=== PATIENT | female | born 1970 | race American Indian/Alaskan Native ===

== ENCOUNTER 2016-07-16 09:42 | Emergency (ER) | payer SELFPAY ==
[2016-07-16 09:55] VITALS: BP 129/84
[2016-07-16] MEDS ORDERED: MOTRIN PO ONE (10:28)
--- NOTE | 2016-07-16 11:23 | Emergency Department Report ---
ED General Adult HPI - General Chief complaint: Extremity Injury, Lower Stated complaint: DUAL LEG PAIN /SWELLING Time Seen by Provider: 07/16/16 10:22 Source: patient Mode of arrival: Ambulatory Limitations: No Limitations - History of Present Illness Initial comments: 25-year-old female presents to the ED complaining about bilateral lower leg pain for about a day or 2. Patient states it is an aching pain and denies any injury. States history of DVT in the past. Denies control use, smoking history, long trips recently. denies chest pain or dyspnea. Severity scale (0 -10): 7 - Related Data Previous Rx's Medication Instructions Recorded Last Taken Type Gabapentin [Neurontin] 300 mg PO BID #60 capsule 12/11/14 Unknown Rx Metoprolol Xl [Metoprolol 25 mg PO QDAY #30 tablet 12/11/14 Unknown Rx SUCCINATE ER TAB] HYDROcodone/APAP 5-325 [[place] 1 each PO Q6HR PRN #30 tablet 05/10/15 Unknown Rx 5/325] Cyclobenzaprine [Flexeril] 10 mg PO TID PRN #14 tablet 07/16/16 Unknown Rx Diclofenac Sodium 75 mg PO BID #14 tablet. 07/16/16 Unknown Rx Allergies Allergy/AdvReac Type Severity Reaction Status Date / Time No Known Allergies Allergy Verified 05/10/15 11:46 ED Review of Systems ROS: Stated complaint: DUAL LEG PAIN /SWELLING Other details as noted in HPI Constitutional: denies: chills, fever Eyes: denies: eye pain, eye discharge, vision change ENT: denies: ear pain, throat pain Respiratory: denies: cough, shortness of breath, wheezing Cardiovascular: denies: chest pain, palpitations Endocrine: no symptoms reported Gastrointestinal: denies: abdominal pain, nausea, diarrhea Genitourinary: denies: urgency, dysuria, discharge Musculoskeletal: myalgia. denies: back pain, joint swelling, arthralgia Skin: denies: rash, lesions Neurological: denies: headache, weakness, paresthesias Psychiatric: denies: anxiety, depression Hematological/Lymphatic: denies: easy bleeding, easy bruising ED Past Medical Hx - Past Medical History Previous Medical History?: Yes Hx Hypertension: Yes Hx Asthma: Yes Additional medical history: SLEEP APNEA - Surgical History Past Surgical History?: Yes Additional Surgical History: hysterectomy. TUBAL LIGATION - Social History Smoking Status: Never Smoker Substance Use Type: Prescribed - Medications Home Medications: Home Medications Medication Instructions Recorded Confirmed Last Taken Type Gabapentin [Neurontin] 300 mg PO BID #60 capsule 12/11/14 Unknown Rx Metoprolol Xl [Metoprolol 25 mg PO QDAY #30 tablet 12/11/14 Unknown Rx SUCCINATE ER TAB] HYDROcodone/APAP 5-325 [[place] 1 each PO Q6HR PRN #30 tablet 05/10/15 Unknown Rx 5/325] Cyclobenzaprine [Flexeril] 10 mg PO TID PRN #14 tablet 07/16/16 Unknown Rx Diclofenac Sodium 75 mg PO BID #14 tablet. 07/16/16 Unknown Rx ED Physical Exam - General Limitations: No Limitations General appearance: alert, in no apparent distress - Head Head exam: Present: atraumatic, normocephalic - Eye Eye exam: Present: normal appearance - ENT ENT exam: Present: mucous membranes moist - Neck Neck exam: Present: normal inspection - Respiratory Respiratory exam: Present: normal lung sounds bilaterally. Absent: respiratory distress, wheezes, rales, rhonchi - Cardiovascular Cardiovascular Exam: Present: regular rate, normal rhythm. Absent: systolic murmur, diastolic murmur, rubs, gallop - GI/Abdominal GI/Abdominal exam: Present: soft, normal bowel sounds - Extremities Exam Extremities exam: Present: normal inspection, calf tenderness (bilateral calf tenderness.) - Back Exam Back exam: Present: normal inspection - Neurological Exam Neurological exam: Present: alert, oriented X3 - Psychiatric Psychiatric exam: Present: normal affect, normal mood - Skin Skin exam: Present: warm, dry, intact, normal color. Absent: rash ED Course Vital Signs 07/16/16 09:51 Temperature 98.3 F Pulse Rate 86 Respiratory 20 Rate Blood Pressure 129/84 O2 Sat by Pulse 100 Oximetry ED Medical Decision Making - Radiology Data Radiology results: report reviewed No DVT seen on ultrasound. - Medical Decision Making DVT is negative. Patient resting comfortably at this time. No acute distress. Critical care attestation.: If time is entered above; I have spent that time in minutes in the direct care of this critically ill patient, excluding procedure time. ED Disposition Clinical Impression: Bilateral lower extremity pain Disposition: DISCHARGED TO HOME OR SELFCARE Is pt being admited?: No Does the pt Need Aspirin: No Condition: Good Prescriptions: Cyclobenzaprine [Flexeril] 10 mg PO TID PRN #14 tablet PRN Reason: Muscle Spasm Diclofenac Sodium 75 mg PO BID #14 tablet. Referrals: PRIMARY CARE, [Primary Care Provider] - 3-5 Days [facility] [Provider Group] - 3-5 Days Forms: Work/School Release Form(ED) Time of Disposition: 11:23
--- NOTE | 2016-07-17 08:24 | Vascular Lab Report ---
LOWER EXTREMITY VENOUS DUPLEX: REASON FOR EXAM: Leg pain/history of DVT. COMMENTS ON THE RIGHT: All veins visualized are freely compressible without evidence of internal echogenicity. Flow is spontaneous and phasic throughout. COMMENTS ON THE LEFT: All veins visualized are freely compressible without evidence of internal echogenicity. Flow is spontaneous and phasic throughout. IMPRESSION: No evidence of acute or chronic deep venous thrombosis in either lower extremity.
== END 2016-07-16 11:47 | disposition home or self-care (01) ==
LOC: ED 09:42
DX: M79.662 Pain in left lower leg (principal); M79.661 Pain in right lower leg; I10 Essential (primary) hypertension; J45.909 Unspecified asthma, uncomplicated; Z86.718 Personal history of other venous thrombosis and embolism; Z87.891 Personal history of nicotine dependence
CPT/HCPCS: 93970

== ENCOUNTER 2016-12-17 10:20 | Emergency (ER) | payer SELFPAY ==
--- NOTE | 2016-12-17 10:57 | Emergency Department Report ---
Entered by CHRISTI MOBLEY, acting as scribe for NOELLE RODARTE NP. Stated Complaint: CANT MOVE LEFT LEG Time Seen by Provider: 12/17/16 10:47 - HPI History of Present Illness: Patient is a 46 y.o. female with hx of DVT in 12/2015 who presents to ED for evaluation of three day hx of constant, moderate to severe LLE weakness with associated 6/10 LLE pain and mild speech slurring. She has difficulty lifting her LLE to ambulate or step on scale. Patient states that she was talking on the phone with her yesterday, and he could not understand her secondary to what he states is a mild change in her speech. Pt does not report headache or confusion. She denies hx of stroke or LLE problems. - ROS Review of Systems: Positive for LLE weakness, LLE pain, speech slurring Negative for headache or confusion - Exam Physical Exam: Constitutional: Well-nourished Neuro: A&Ox3. LLE weakness. MSE screening note: Focused history and physical exam performed. Due to findings the following was ordered: Orders: Labs, EKG, and CT head. ED Disposition for MSE Condition: Stable This documentation as recorded by the scribe,CHRISTI MOBLEY,accurately reflects the service I personally performed and the decisions made by ,NOELLE RODARTE , INTERVENTIONAL PHYSIATRIST.
[2016-12-17 11:15] LABS: Basophils % (Auto) 0.3 % (0.0-1.8); Eosinophils % (Auto) 1.4 % (0.0-4.3); Hematocrit 37.3 % (30.3-42.9); Hemoglobin 12.5 gm/dl (10.1-14.3); Mean Corpuscular HGB Conc 34 % (30-34); Mean Corpuscular Hemoglobin 31 pg (28-32); Mean Corpuscular Volume 92 fl (79-97); Platelet Count 308 K/mm3 (140-440); Red Blood Count 4.06 M/mm3 (3.65-5.03); Red Cell Distribution Width 13.5 % (13.2-15.2); White Blood Count 6.7 K/mm3 (4.5-11.0)
[2016-12-17 11:25] LABS: INR 0.94 (0.87-1.13); Partial Thromboplastin Time 24.3 Sec. (24.2-36.6)
[2016-12-17 11:36] LABS: Alanine Aminotransferase 11 units/L (7-56); Albumin 3.8 g/dL (3.9-5); Alkaline Phosphatase 69 units/L (35-129); Anion Gap 16 mmol/L; Blood Urea Nitrogen 14 mg/dL (7-17); Calcium 8.4 mg/dL (8.4-10.2); Carbon Dioxide 23 mmol/L (22-30); Chloride 102.2 mmol/L (98-107); Glucose 90 mg/dL (65-100); Potassium 4.4 mmol/L (3.6-5.0); Sodium 137 mmol/L (137-145); Total Protein 7.5 g/dL (6.3-8.2)
--- NOTE | 2016-12-17 11:37 | Cat Scan Report ---
CT HEAD WITHOUT CONTRAST INDICATION: Left lower extremity weakness. COMPARISON: None similar. FINDINGS: Noncontrast head CT demonstrates normal ventricles and sulci without acute or recent infarct, hemorrhage, mass effect or midline shift. No abnormal extra-axial fluid collections. Posterior fossa structures and basilar cisterns appear within normal limits. Symmetric eye globes. Clear paranasal sinuses and mastoid air cells. Intact calvarium. Normal overlying scalp soft tissues. Few radiopaque dental material incidentally noted. CONCLUSION: No acute intracranial CT abnormality, as described. If focal neurologic deficits or strong clinical suspicion for an acute infarction exist, additional assessment as with MRI may be considered, as appropriate. Thank you for the opportunity to participate in this patient's care.
[2016-12-17 15:18] LABS: Bacteria,Urine 1+ /HPF (Negative); Bilirubin,Urine NEG (Negative); Blood,Urine NEG (Negative); Ketones,Urine NEG (Negative); Leukocyte Esterase,Urine NEG (Negative); Nitrite,Urine NEG (Negative); Protein,Urine <15 mg/dL mg/dL (Negative); Urobilinogen,Urine < 2.0 mg/dL (<2.0)
[2016-12-17] MEDS ORDERED: DECADRON IV ONE (15:20)
[2016-12-17 15:22] LABS: RBC,Urine < 1.0 /HPF (0.0-6.0)
--- NOTE | 2016-12-17 15:22 | Emergency Department Report ---
ED General Adult HPI - General Chief complaint: Neuro Symptoms/Deficit Stated complaint: CANT MOVE LEFT LEG Time Seen by Provider: 12/17/16 10:47 Source: patient, family, RN notes reviewed Mode of arrival: Wheelchair Limitations: Physical Limitation - History of Present Illness Initial comments: This is a 46-year-old female. She is previously unknown to me. She does not have a local primary care doctor. She has a history of DVT, hypertension and obesity, not currently on systemic anticoagulation. The patient recently moved here from [place]. The patient presents to the ER with painless weakness in the left lower extremity. It has been going on for the past day and a half to 2 days. It is constant. Does not have exacerbating or relieving factors. Patient reports that she did have some paralumbar and lumbar back pain a few days ago, this has since resolved. There is no headache, neck pain, chest pain, abdominal pain or shortness of breath. There is no saddle anesthesia. There is no bladder or bowel retention or incontinence. -: Gradual Location: left, lower extremity Severity scale (0 -10): 10 Consistency: constant Improves with: none Worsens with: none Associated Symptoms: denies: confusion, chest pain, cough, diaphoresis, fever/ chills, headaches, loss of appetite, malaise, nausea/vomiting, shortness of breath, syncope, weakness - Related Data Previous Rx's Medication Instructions Recorded Last Taken Type Gabapentin [Neurontin] 300 mg PO BID #60 capsule 12/11/14 Unknown Rx Metoprolol Xl [Metoprolol 25 mg PO QDAY #30 tablet 12/11/14 Unknown Rx SUCCINATE ER TAB] HYDROcodone/APAP 5-325 [[place] 1 each PO Q6HR PRN #30 tablet 05/10/15 Unknown Rx 5/325] Cyclobenzaprine [Flexeril] 10 mg PO TID PRN #14 tablet 07/16/16 Unknown Rx Diclofenac Sodium 75 mg PO BID #14 tablet.dr 07/16/16 Unknown Rx Aspirin 81 mg PO DAILY #30 tab.chew 12/17/16 Unknown Rx Prednisone [predniSONE 10 mg 10 mg PO .TAPER #1 tab.ds.pk 12/17/16 Unknown Rx (6-Day Pack, 21 Tabs)] Allergies Allergy/AdvReac Type Severity Reaction Status Date / Time No Known Allergies Allergy Verified 05/10/15 11:46 ED Review of Systems ROS: Stated complaint: CANT MOVE LEFT LEG Other details as noted in HPI Constitutional: denies: fever, malaise Eyes: denies: vision change ENT: denies: epistaxis Respiratory: denies: cough Cardiovascular: denies: chest pain Gastrointestinal: denies: abdominal pain, nausea, vomiting Musculoskeletal: back pain Neurological: weakness, numbness, paresthesias ED Past Medical Hx - Past Medical History Previous Medical History?: Yes Hx Hypertension: Yes Hx Asthma: Yes Additional medical history: SLEEP APNEA - Surgical History Past Surgical History?: Yes Additional Surgical History: hysterectomy. TUBAL LIGATION - Social History Smoking Status: Never Smoker Substance Use Type: Prescribed - Medications Home Medications: Home Medications Medication Instructions Recorded Confirmed Last Taken Type Gabapentin [Neurontin] 300 mg PO BID #60 capsule 12/11/14 Unknown Rx Metoprolol Xl [Metoprolol 25 mg PO QDAY #30 tablet 12/11/14 Unknown Rx SUCCINATE ER TAB] HYDROcodone/APAP 5-325 [[place] 1 each PO Q6HR PRN #30 tablet 05/10/15 Unknown Rx 5/325] Cyclobenzaprine [Flexeril] 10 mg PO TID PRN #14 tablet 07/16/16 Unknown Rx Diclofenac Sodium 75 mg PO BID #14 tablet.dr 07/16/16 Unknown Rx Aspirin 81 mg PO DAILY #30 tab.chew 12/17/16 Unknown Rx Prednisone [predniSONE 10 mg 10 mg PO .TAPER #1 tab.ds.pk 12/17/16 Unknown Rx (6-Day Pack, 21 Tabs)] ED Physical Exam - General Limitations: Physical Limitation General appearance: alert, in no apparent distress - Head Head exam: Present: atraumatic, normocephalic - Eye Eye exam: Present: normal appearance, EOMI. Absent: nystagmus - ENT ENT exam: Present: normal exam, normal orophraynx, mucous membranes moist, normal external ear exam - Neck Neck exam: Present: normal inspection, full ROM. Absent: tenderness, meningismus - Respiratory Respiratory exam: Present: normal lung sounds bilaterally. Absent: respiratory distress, wheezes, rales, rhonchi, stridor, chest wall tenderness - Cardiovascular Cardiovascular Exam: Present: regular rate, normal rhythm, normal heart sounds. Absent: bradycardia, tachycardia, irregular rhythm, systolic murmur, diastolic murmur, rubs, gallop - GI/Abdominal GI/Abdominal exam: Present: soft, normal bowel sounds. Absent: distended, tenderness, guarding, rebound, rigid - Extremities Exam Extremities exam: Present: normal inspection, normal capillary refill, other ( there is 5 out of 5 strength in the bilateral lower extremity is. There is 5 out of 5 strength in the right lower extremity.). Absent: full ROM (there is decreased range of motion in the left lower extremity. patient is able to wiggle toes, and muscle contraction is noted in the quadriceps, however patient unable to lift left lower extremity up against gravity, plantar reflexes are equivocal, quadriceps reflexes are equivocal, decreased sensation to light touch and pinprick in the left lower extremity.), calf tenderness - Back Exam Back exam: Present: normal inspection, paraspinal tenderness, vertebral tenderness - Neurological Exam Neurological exam: Present: alert, oriented X3, motor sensory deficit ( decreased sensation to light touch and pinprick, 1 out of 5 strength in the left lower extremity), other (there is no facial droop. The tongue is midline. Extraocular movements are intact bilaterally. Facial sensation intact to light touch in the V1, V2, V3 distribution bilaterally) - Psychiatric Psychiatric exam: Present: normal affect, normal mood - Skin Skin exam: Present: warm, dry, intact, normal color. Absent: rash ED Course Vital Signs 12/17/16 12/17/16 12/17/16 10:47 12:57 13:00 Temperature 98.4 F Pulse Rate 86 Respiratory 16 Rate Blood Pressure 110/70 115/62 Blood Pressure [Left] O2 Sat by Pulse 99 100 100 Oximetry 12/17/16 12/17/16 12/17/16 13:10 13:20 13:30 Temperature Pulse Rate Respiratory Rate Blood Pressure 115/62 115/62 102/64 Blood Pressure [Left] O2 Sat by Pulse 100 100 95 Oximetry 12/17/16 12/17/16 12/17/16 13:40 13:42 13:50 Temperature 98.6 F Pulse Rate 71 Respiratory 17 Rate Blood Pressure 102/64 102/64 Blood Pressure 109/58 [Left] O2 Sat by Pulse 97 100 100 Oximetry 12/17/16 12/17/16 12/17/16 14:00 14:10 14:20 Temperature Pulse Rate Respiratory Rate Blood Pressure 101/61 101/61 101/61 Blood Pressure [Left] O2 Sat by Pulse 100 100 100 Oximetry 12/17/16 12/17/16 12/17/16 14:30 14:50 15:00 Temperature Pulse Rate Respiratory Rate Blood Pressure 102/63 102/63 102/65 Blood Pressure [Left] O2 Sat by Pulse 100 100 100 Oximetry 12/17/16 12/17/16 12/17/16 15:10 15:20 15:30 Temperature Pulse Rate Respiratory Rate Blood Pressure 102/65 102/65 111/69 Blood Pressure [Left] O2 Sat by Pulse 100 100 100 Oximetry 12/17/16 12/17/16 12/17/16 15:40 15:50 16:00 Temperature Pulse Rate Respiratory Rate Blood Pressure 111/69 111/69 104/66 Blood Pressure [Left] O2 Sat by Pulse 100 100 100 Oximetry 12/17/16 12/17/16 12/17/16 16:10 16:20 16:30 Temperature Pulse Rate Respiratory Rate Blood Pressure 104/66 104/66 109/70 Blood Pressure [Left] O2 Sat by Pulse 100 100 98 Oximetry 12/17/16 12/17/16 12/17/16 18:04 18:10 18:20 Temperature Pulse Rate Respiratory Rate Blood Pressure 109/70 109/70 109/70 Blood Pressure [Left] O2 Sat by Pulse 96 97 98 Oximetry 12/17/16 12/17/16 12/17/16 18:30 18:40 18:50 Temperature Pulse Rate Respiratory Rate Blood Pressure 107/63 107/63 107/63 Blood Pressure [Left] O2 Sat by Pulse 96 100 100 Oximetry - Reevaluation(s) Reevaluation #1: 12/17/16 15:48 differential diagnosis: Subacute stroke, cord compression Assessment and plan: 46-year-old female with approximately 2 days of left lower extremity weakness and numbness. There is no bladder or bowel retention or incontinence. She endorses some back pain. Not a TPA candidate as symptoms present for greater than 4.5 hours. Emergent MR of the thoracic and lumbar spine ordered. Decadron ordered. Laboratory studies are reviewed and appreciated. Reevaluation #2: 12/17/16 17:15 case is discussed with neurosurgery power distribution engineer for [place], Dr. Bhupendra Aguilar, who agrees with this plan of care, and indicates patient may be transferred if cord compression identified on MRI 12/17/16 19:40 Reevaluation #3: 08/01/17 18:51 MRI of the thoracic and lumbar spine negative for cord compression. NO INDICATION TO transfer for neurosurgical consultation Has appropriate strength in the bilateral upper extremities, therefore cervical lesion is very unlikely. Patient is presented to the Hospital physician, Dr. Cisneros for presumed subacute stroke. 12/17/16 19:40 ED Medical Decision Making - Lab Data Result diagrams: 12/17/16 11:04 12/17/16 11:04 Vital Signs 12/17/16 12/17/16 10:47 13:42 Temperature 98.4 F 98.6 F Pulse Rate 86 71 Respiratory 16 17 Rate Blood Pressure 110/70 Blood Pressure 109/58 [Left] O2 Sat by Pulse 99 100 Oximetry Lab Results 12/17/16 12/17/16 12/17/16 Range/Units 11:04 11:04 11:04 WBC 6.7 (4.5-11.0) K/mm3 RBC 4.06 (3.65-5.03) M/mm3 Hgb 12.5 (10.1-14.3) gm/dl Hct 37.3 (30.3-42.9) % MCV 92 (79-97) fl MCH 31 (28-32) pg MCHC 34 (30-34) % RDW 13.5 (13.2-15.2) % Plt Count 308 (140-440) K/mm3 Lymph % (Auto) 44.5 H (13.4-35.0) % [place] % (Auto) 9.3 H (0.0-7.3) % Eos % (Auto) 1.4 (0.0-4.3) % Baso % (Auto) 0.3 (0.0-1.8) % Lymph # 3.0 (1.2-5.4) K/mm3 [place] # 0.6 (0.0-0.8) K/mm3 Eos # 0.1 (0.0-0.4) K/mm3 Baso # 0.0 (0.0-0.1) K/mm3 Seg Neutrophils % 44.5 (40.0-70.0) % Seg Neutrophils # 3.0 (1.8-7.7) K/mm3 PT 12.5 (12.2-14.9) Sec. INR 0.94 (0.87-1.13) APTT 24.3 (24.2-36.6) Sec. Sodium 137 (137-145) mmol/L Potassium 4.4 (3.6-5.0) mmol/L Chloride 102.2 (98-107) mmol/L Carbon Dioxide 23 (22-30) mmol/L Anion Gap 16 mmol/L BUN 14 (7-17) mg/dL Creatinine 0.7 (0.7-1.2) mg/dL Estimated GFR > 60 ml/min BUN/Creatinine Ratio 20.00 % Glucose 90 (65-100) mg/dL Calcium 8.4 (8.4-10.2) mg/dL Total Bilirubin 0.30 (0.1-1.2) mg/dL AST 12 (5-40) units/L ALT 11 (7-56) units/L Alkaline Phosphatase 69 (35-129) units/L Total Protein 7.5 (6.3-8.2) g/dL Albumin 3.8 L (3.9-5) g/dL Albumin/Globulin Ratio 1.0 % Urine Color (Yellow) Urine Turbidity (Clear) Urine pH (5.0-7.0) Ur Specific [place] (1.003-1.030) Urine Protein (Negative) mg/dL Urine Glucose (UA) (Negative) mg/dL Urine Ketones (Negative) mg/dL Urine Blood (Negative) Urine Nitrite (Negative) Urine Bilirubin (Negative) Urine Urobilinogen (<2.0) mg/dL Ur Leukocyte Esterase (Negative) Urine WBC (Auto) (0.0-6.0) /HPF Urine RBC (Auto) (0.0-6.0) /HPF U Epithel Cells (Auto) (0-13.0) /HPF Urine Bacteria (Auto) (Negative) /HPF 12/17/16 Range/Units 14:08 WBC (4.5-11.0) K/mm3 RBC (3.65-5.03) M/mm3 Hgb (10.1-14.3) gm/dl Hct (30.3-42.9) % MCV (79-97) fl MCH (28-32) pg MCHC (30-34) % RDW (13.2-15.2) % Plt Count (140-440) K/mm3 Lymph % (Auto) (13.4-35.0) % [place] % (Auto) (0.0-7.3) % Eos % (Auto) (0.0-4.3) % Baso % (Auto) (0.0-1.8) % Lymph # (1.2-5.4) K/mm3 [place] # (0.0-0.8) K/mm3 Eos # (0.0-0.4) K/mm3 Baso # (0.0-0.1) K/mm3 Seg Neutrophils % (40.0-70.0) % Seg Neutrophils # (1.8-7.7) K/mm3 PT (12.2-14.9) Sec. INR (0.87-1.13) APTT (24.2-36.6) Sec. Sodium (137-145) mmol/L Potassium (3.6-5.0) mmol/L Chloride (98-107) mmol/L Carbon Dioxide (22-30) mmol/L Anion Gap mmol/L BUN (7-17) mg/dL Creatinine (0.7-1.2) mg/dL Estimated GFR ml/min BUN/Creatinine Ratio % Glucose (65-100) mg/dL Calcium (8.4-10.2) mg/dL Total Bilirubin (0.1-1.2) mg/dL AST (5-40) units/L ALT (7-56) units/L Alkaline Phosphatase (35-129) units/L Total Protein (6.3-8.2) g/dL Albumin (3.9-5) g/dL Albumin/Globulin Ratio % Urine Color Straw (Yellow) Urine Turbidity Clear (Clear) Urine pH 5.0 (5.0-7.0) Ur Specific [place] 1.013 (1.003-1.030) Urine Protein <15 mg/dl (Negative) mg/dL Urine Glucose (UA) Neg (Negative) mg/dL Urine Ketones Neg (Negative) mg/dL Urine Blood Neg (Negative) Urine Nitrite Neg (Negative) Urine Bilirubin Neg (Negative) Urine Urobilinogen < 2.0 (<2.0) mg/dL Ur Leukocyte Esterase Neg (Negative) Urine WBC (Auto) 1.0 (0.0-6.0) /HPF Urine RBC (Auto) < 1.0 (0.0-6.0) /HPF U Epithel Cells (Auto) 3.0 (0-13.0) /HPF Urine Bacteria (Auto) 1+ (Negative) /HPF - EKG Data -: EKG Interpreted by Me EKG shows normal: sinus rhythm, axis, intervals, QRS complexes, ST-T waves - EKG Data When compared to previous EKG there are: previous EKG unavailable 12/17/16 15:49. Normal sinus, 88 bpm, normal axis, normal intervals, right bundle branch block, abnormal EKG, not morphological consistent with stemi - Radiology Data Radiology results: report reviewed, image reviewed Noncontrast CT scan of the brain is negative for acute disease Critical care attestation.: If time is entered above; I have spent that time in minutes in the direct care of this critically ill patient, excluding procedure time. ED Disposition Clinical Impression: Left leg weakness Disposition: - OP ADMIT IP TO THIS HOSP Is pt being admited?: Yes Does the pt Need Aspirin: Yes Condition: Good Prescriptions: Aspirin 81 mg PO DAILY #30 tab.chew Prednisone [predniSONE 10 mg (6-Day Pack, 21 Tabs)] 10 mg PO .TAPER #1 tab.ds.pk Referrals: PRIMARY CARE, [Primary Care Provider] - 3-5 Days
--- NOTE | 2016-12-17 18:24 | Magnetic Resonance Report ---
FINAL REPORT PROCEDURE: MR THORACIC SPINE WO CON TECHNIQUE: Magnetic resonance imaging of the thoracic spine was performed using standard pulse sequences without contrast material. CPT 62705 HISTORY: cord compression, nonspecified neurologic symptoms COMPARISON: No prior studies are available for comparison. FINDINGS: No thoracic compression fracture is seen. Mild Schmorl's node formation is seen in a few endplates in the mid thoracic spine. There is no subluxation. No abnormal T2 signal is seen in the thoracic cord. There likely very minimal central disc bulges at T4-5, T5-6, T6-7, and T7-8 but these cause no significant stenosis. No bony central canal or neural foraminal stenosis is seen. IMPRESSION: Few small disc bulges are seen centrally in the mid thoracic spine. No evidence of cord contact or cord compression is seen.
--- NOTE | 2016-12-17 18:26 | Magnetic Resonance Report ---
FINAL REPORT PROCEDURE: MR LUMBAR SPINE WO CON TECHNIQUE: Magnetic resonance imaging of the lumbar spine was performed using standard pulse sequences without contrast material. HISTORY: Nonspecified neurologic symptoms, cord compression COMPARISON: No prior studies are available for comparison. FINDINGS: The conus terminates at the L1 level. No lumbar compression fracture or abnormal bony signal is seen. No spondylolisthesis is seen. Mild facet hypertrophy is seen at L5-S1 causing no stenosis. No disc bulge or herniation is seen. IMPRESSION: No stenosis is seen.
--- NOTE | 2016-12-17 18:48 | History and Physical Report ---
History of Present Illness History of present illness: 46 YO Female with This is a 46-year-old female. She is previously unknown to me. She does not have a local primary care doctor. She has a history of DVT, hypertension and obesity, not currently on systemic anticoagulation. The patient recently moved here from [place]. The patient presents to the ER with painless weakness in the left lower extremity. It has been going on for the past day and a half to 2 days. It is constant. Does not have exacerbating or relieving factors. Patient reports that she did have some paralumbar and lumbar back pain a few days ago, this has since resolved. There is no headache, neck pain, chest pain, abdominal pain or shortness of breath. There is no saddle anesthesia. There is no bladder or bowel retention or incontinence. - Hx Hypertension: Yes Hx Asthma: Yes Additional medical history: SLEEP APNEA - Surgical History Past Surgical History?: Yes Additional Surgical History: hysterectomy. TUBAL LIGATION - Social History Smoking Status: Never Smoker Substance Use Type: Prescribed Medications and Allergies Allergies Allergy/AdvReac Type Severity Reaction Status Date / Time No Known Allergies Allergy Verified 05/10/15 11:46 Home Medications Medication Instructions Recorded Confirmed Last Taken Type Gabapentin [Neurontin] 300 mg PO BID #60 capsule 12/11/14 Unknown Rx Metoprolol Xl [Metoprolol 25 mg PO QDAY #30 tablet 12/11/14 Unknown Rx SUCCINATE ER TAB] HYDROcodone/APAP 5-325 [[place] 1 each PO Q6HR PRN #30 tablet 05/10/15 Unknown Rx 5/325] Cyclobenzaprine [Flexeril] 10 mg PO TID PRN #14 tablet 07/16/16 Unknown Rx Diclofenac Sodium 75 mg PO BID #14 tablet. 07/16/16 Unknown Rx Exam - Constitutional Vitals: Temp Pulse Resp BP Pulse Ox 98.6 F 71 17 109/58 100 12/17/16 13:42 12/17/16 13:42 12/17/16 13:42 12/17/16 13:42 12/17/16 13:42 Results - Labs CBC & Chem 7: 12/17/16 11:04 12/17/16 11:04 Labs: Abnormal lab results 12/17/16 12/17/16 Range/Units 11:04 11:04 Lymph % (Auto) 44.5 H (13.4-35.0) % [place] % (Auto) 9.3 H (0.0-7.3) % Albumin 3.8 L (3.9-5) g/dL
[2016-12-17] MEDS ORDERED: BABY ASPIRIN PO ONE (18:52)
--- NOTE | 2016-12-17 18:59 | Admit Criteria Form ---
Admission Criteria Documentation: NEUROLOGY GRG Clinical Indications for Admission to Inpatient Care (Place ' X' for any and all applicable criteria): Hospital admission is needed for appropriate care of the patient because of 1 or more of the following: [ ]I. Encephalitis [ ]II. Severe HOME CARE PHYSICAL THERAPIST infections indicated by 1 or more of the following(1)(2)(3) : [ ]a) Intracranial abscess [ ]b) Spinal abscess or myelitis [ ]c) Tuberculous or other nonbacterial, nonviral HOME CARE PHYSICAL THERAPIST infection(8) [ ]III. Vasculitis and 1 or more of the following(14)(15): []a) Altered mental status that is severe or persistent or other acute neurologic change []b) Psychosis []c) Seizure [ ]IV. Status epilepticus or repetitive seizures not controlled with emergent treatment [A] (7)(8) [ ]V. Altered mental status that is severe or persistent [ ]. Transient alteration in consciousness with high-risk etiology; examples include (12)(13): [ ]a) Cardiovascular source [ ]b) Cataplexy [ ]VII. Cerebral aneurysm requiring ANY ONE of the following(14): [ ]a) IV antihypertensives or vasoactive agents [ ]b) Sedation and analgesia for suspected leak [ ]c) Need for external ventricular drainage and cerebral perfusion pressure monitoring [ ]d) Emergent evaluation to determine need for surgical clipping or endovascular coiling by interventional radiology. If surgery is required ( Also use Craniotomy, Supratentorial, for Surgery of Bleeding Intracranial Aneurysm (for bleeding aneurysm) or Craniotomy, Supratentorial (for nonbleeding aneurysm) as appropriate. [X ]VIII. New-onset severe neurologic symptom requiring inpatient care indicated by ANY ONE of the following: [ ]a) Aphasia(15) [ X]b) Weakness (grade 3 or less) [ ]c) Paralysis (eg, hemiplegia) [ ]d) Spasticity(16) [ ]e) Dystonia [ ]e) Ataxia(17) [ ]f) Amnesia(18) [ ]g) Involuntary movements(19) [ ]h) Vertigo [ ] Visual loss [ ]i) Other severe neurologic finding (eg, papilledema, mass effect on imaging, myoclonus not treatable at alternative level of care (eg, observation care) [ ]IX. Guillain-[place] syndrome(20) [ ]X. Myasthenia gravis crisis or inpatient monitoring need as indicated by 1 or more of the following(21): [ ]a) Intensive treatment (eg, course of plasmapheresis) with inadequate outpatient situation to monitor patients status [ ]b) Inadequate airway protection [ ]c) Respiratory insufficiency requiring intubation or inpatient. monitoring [ ]d) Progressive dysphagia with failure to thrive [ ]XI. Multiple sclerosis or other acute demyelinating disease requiring inpatient care as indicated by 1 or more of the following (22)(23): [ ]a) Acute severe deterioration requiring inpatient treatment (eg, IV steroids, plasmapheresis, close observation) [ ]b) Acute complication requiring inpatient care (eg, sepsis, severe decubitus, aspiration) [ ]XII.Parkinson disease requiring inpatient care (Also use Optimal Recovery Care Criteria or General Recovery Criteria as appropriate) indicated by 1 or more of the following(25): [ ]a) Infection (eg, aspiration pneumonia) not treatable at alternative level of care [ ]b Dehydration that is severe or persistent [ ]c) Life-threatening agitation or psychotic behavior not treatable on emergency, observation care, or alternative level (eg, residential) basis [ ]d) Severe medication withdrawal effects (eg, freezing, neuroleptic malignant syndrome) not responsive to emergency and observation care treatment ( as appropriate) [ ]e) Other severe manifestation not treatable at alternative level of care [ ]XII. Amyotrophic lateral sclerosis with inpatient care needs as indicated by ANY ONE of the following(26): [ ]a) Acute complications (eg, aspiration pneumonia, sepsis ) requiring inpatient care ( see other optimal Recovery Guideline as appropriate) [ ]b) Dehydration that is severe persistent AND artificial support desired [ ]c) Inadequate airway protection AND artificial support desired [ ]d) Severe ventilatory insufficiency AND artificial support desired [ ]XIII. Myasthenia gravis crisis or inpatient monitoring need as indicated by 1 or more of the following(21): [] a) Inadequate airway protection []b) Respiratory insufficiency requiring intubation or inpatient monitoring []c) Progressive dysphagia with failure to thrive []d) Intensive treatment (e.g., course of plasmapheresis) with inadequate outpatient situation to monitor patients status [ ]XIV. Multiple sclerosis or other acute demyelinating disease requiring inpatient care indicated by 1 or more of the following[C](36)(43)(44)(45)(46): []a) Acute severe deterioration requiring inpatient treatment (eg, IV steroids, plasmapheresis, close observation) []b) Acute complication requiring inpatient care (eg, sepsis, severe decubitus, aspiration) [ ]XV. Intracranial hypertension (e.g., pseudotumor cerebri) requiring inpatient care (e.g., acute visual loss, inadequate oral intake) (47)(48)(49) [ ]XVI. Parkinson disease requiring inpatient care (Also use Optimal Recovery Care Criteria or General Recovery Criteria as appropriate) indicated by 1 or more of the following(25): [] a) Infection (e.g., aspiration pneumonia) not treatable at alternative level of care []b) Volume depletion not responsive to emergency and observation care treatment (as appropriate) []c) Life-threatening agitation or psychotic behavior not treatable on emergency, observation care, or alternative level (e.g., residential) basis []d) Severe medication withdrawal effects (e.g., freezing, neuroleptic malignant syndrome) not responsive to emergency and observation care treatment (as appropriate) []e) Other severe manifestation not treatable at alternative level of care [ ]XVII. Amyotrophic lateral sclerosis with inpatient care needs as indicated by1 or more of the following(42): []a) Acute complications (eg, aspiration pneumonia, sepsis) requiring inpatient care (see other Optimal Recovery Guideline or General Recovery Guideline as appropriate) []b) Dehydration that is severe or persistent AND artificial support desired []c) Inadequate airway protection AND artificial support desired []d) Severe ventilatory insufficiency AND artificial support desired [ ]XVIII. Severe myopathy, neuropathy, or other neuromuscular disease indicated by 1 or more of the following(42)(52)(53)(54): []a ) New-onset severe diffuse weakness (eg, strength 3/5 or less) []b) Severe dysphagia []c) Dyspnea at rest or with minimal exertion (new) []d) Inadequate airway protection []e) Inadequate ventilation indicated by 1 or more of the following : i) Partial pressure of carbon dioxide greater than 44 mm Hg ( 5.9 kPa) (new) ii) Reduced peak expiratory flow rate (new) iii) Vital capacity less than 50% of predicted (less than 15 mL/kg) iv) Peak inspiratory force less negative than -30 cm H2O (- 2942 Pa) [ ]XVII.Complications of congenital or degenerative disease (eg, infection, seizures, dehydration, injury) not responsive to emergency and observation care treatment (as appropriate ) [C](16)(29)(30) [ ]XVIII.Suspected or confirmed nerve or muscle toxic injury, including ANY ONE of the following: [ ]a) Rhabdomyolysis(31) i) Acute renal failure ii) Dehydration that is severe or persistent iii) Altered mental status that is severe or persistent iv) Electrolyte abnormality that remains after emergency or observation level care ( as appropriate) [ ]b) Botulism(32) [ ]c) Other severe toxin-induced sign or symptom [ ]XIX. Neurologic trauma requiring inpatient treatment (medical) indicated by ANY ONE of the following(33)(34): [ ]a) Vital signs or neurologic signs more frequently than every 4 hours [ ]b) Hyperosmolar therapy [ ]c) Respiratory monitoring [ ]d) Intracranial pressure monitoring and treatment [ ]e) Stabilization and immobilization device placement (eg, braces, body jacket) [ ]f) Intubation & mechanical ventilation for airway protection or therapeutic hyperventilation [ ]g) Other treatment or monitoring needed that requires inpatient level of care [ ]XX.Complications of neurologic devices (eg, ventricular shunt, neurostimulator) requiring 1 or more of the following(35)(36): [ ]a) IV antibiotics with monitoring while awaiting culture results [ ]b) Monitoring for hydrocephalus [ ]XXI. Neurology condition symptom, or finding for which emergency and observation care have failed or are not considered appropriate. See General Criteria: Observation Care ISC, General Admission Criteria GRG, or Pediatric General Admission Criteria GRG guideline as appropriate. The original [facility] [employer] content created by [facility] has been revised. The portions of the content which have been revised are identified through the use of italic text or in bold, and [facility] has neither reviewed nor approved the modified material. All other unmodified content is copyright [facility] Please see references footnoted in the original [facility] edition 2016 Admission Criteria Met: Yes
[2016-12-17 20:13] VITALS: BP 94/64
== END 2016-12-17 20:13 | disposition admitted as inpatient to this hospital (09) ==
LOC: ED 10:20
DX: M62.81 Muscle weakness (generalized) (principal); I10 Essential (primary) hypertension; J45.909 Unspecified asthma, uncomplicated; Z79.01 Long term (current) use of anticoagulants; Z79.82 Long term (current) use of aspirin
CPT/HCPCS: 36415; 70450; 72146; 72148; 80053; 81001; 85025; 85610; 85730; 93005; 93010

== ENCOUNTER 2017-12-11 16:34 | Emergency (ER) | payer SELFPAY ==
[2017-12-11 17:11] VITALS: BP 134/84
[2017-12-11 18:02] LABS: Basophils % (Auto) 0.2 % (0.0-1.8); Eosinophils # (Auto) 0.1 K/mm3 (0.0-0.4); Eosinophils % (Auto) 2.1 % (0.0-4.3); Hemoglobin 13.4 gm/dl (10.1-14.3); Lymphocytes # (Auto) 2.7 K/mm3 (1.2-5.4); Lymphocytes % (Auto) 50.1 % (13.4-35.0); Mean Corpuscular HGB Conc 34 % (30-34); Mean Corpuscular Hemoglobin 31 pg (28-32); Mean Corpuscular Volume 93 fl (79-97); Monocytes # (Auto) 0.4 K/mm3 (0.0-0.8); Monocytes % (Auto) 7.6 % (0.0-7.3); Platelet Count 345 K/mm3 (140-440); Red Cell Distribution Width 13.3 % (13.2-15.2)
[2017-12-11 18:19] LABS: BUN/Creatinine Ratio 15; Blood Urea Nitrogen 12 mg/dL (7-17); Calcium 9.3 mg/dL (8.4-10.2); Hemolysis Index 3
[2017-12-11] MEDS ORDERED: TORADOL IM ONE (20:37)
--- NOTE | 2017-12-11 20:38 | Emergency Department Report ---
ED General Adult HPI - General Chief complaint: Medical Clearance Stated complaint: PROBLEM W/ MUSCLES Time Seen by Provider: 12/11/17 20:25 Source: patient, RN notes reviewed, old records reviewed Mode of arrival: Ambulatory Limitations: No Limitations - History of Present Illness Initial comments: This is a 47-year-old female whom I have evaluated in the past. She has a past medical history DVT, hypertension, obesity, presumed radiculopathy. She presents to the ER with nontraumatic burning left lower extremity pain which starts the left paralumbar region and radiates down the posterior and lateral aspect of her left leg. Her pain is burning and sharp. It increases with range of motion and walking and decreases with rest. There is no headache, neck pain, chest pain, abdominal pain, shortness of breath. There is no bladder or bowel retention/incontinence. She denies motor weakness to the leg but indicates that she has intense pain which occasionally limits her range of motion. Patient presented for a similar complaint in December 2016, had an MRI of the thoracic spine which showed some incidental disc bulges but no obvious cord compression, and an MRI of the lumbar spine which was also equally unremarkable. -: Gradual Location: back, left, lower extremity Radiation: extremity Quality: burning Consistency: intermittent Improves with: rest Worsens with: movement Associated Symptoms: denies: confusion, chest pain, cough, diaphoresis, fever/ chills, headaches, loss of appetite, malaise, nausea/vomiting, rash, seizure, shortness of breath, syncope, weakness - Related Data Previous Rx's Medication Instructions Recorded Last Taken Type Gabapentin [Neurontin] 300 mg PO BID #60 capsule 12/11/14 Unknown Rx Metoprolol Xl [Metoprolol 25 mg PO QDAY #30 tablet 12/11/14 Unknown Rx SUCCINATE ER TAB] HYDROcodone/APAP 5-325 [[place] 1 each PO Q6HR PRN #30 tablet 05/10/15 Unknown Rx 5/325] Diclofenac Sodium 75 mg PO BID #14 tablet. 07/16/16 Unknown Rx Aspirin 81 mg PO DAILY #30 tab.chew 12/17/16 Unknown Rx Prednisone [predniSONE 10 mg 10 mg PO .TAPER #1 tab.ds.pk 12/17/16 Unknown Rx (6-Day Pack, 21 Tabs)] Cyclobenzaprine [Flexeril 10 MG 10 mg PO QHS PRN #20 tablet 03/20/17 Unknown Rx TAB] Naproxen [Naprosyn TAB] 500 mg PO BID #40 tablet 03/20/17 Unknown Rx tiZANidine [Zanaflex] 4 mg PO DAILY #10 tablet 03/20/17 Unknown Rx Acetaminophen [Tylenol Arthritis] 650 mg PO Q6HR PRN #30 tablet.er 12/11/17 Unknown Rx Ibuprofen [Motrin] 600 mg PO Q8H PRN #30 tablet 12/11/17 Unknown Rx Allergies Allergy/AdvReac Type Severity Reaction Status Date / Time No Known Allergies Allergy Verified 05/10/15 11:46 ED Review of Systems ROS: Stated complaint: PROBLEM W/ MUSCLES Other details as noted in HPI Constitutional: denies: fever Eyes: denies: eye discharge ENT: denies: epistaxis Respiratory: denies: cough Cardiovascular: denies: chest pain Gastrointestinal: denies: abdominal pain Genitourinary: denies: dysuria Musculoskeletal: back pain Skin: denies: lesions Neurological: paresthesias Psychiatric: denies: anxiety ED Past Medical Hx - Past Medical History Hx Hypertension: Yes Hx Asthma: Yes Additional medical history: SLEEP APNEA - Surgical History Additional Surgical History: hysterectomy. TUBAL LIGATION - Social History Smoking Status: Never Smoker - Medications Home Medications: Home Medications Medication Instructions Recorded Confirmed Last Taken Type Gabapentin [Neurontin] 300 mg PO BID #60 capsule 12/11/14 Unknown Rx Metoprolol Xl [Metoprolol 25 mg PO QDAY #30 tablet 12/11/14 Unknown Rx SUCCINATE ER TAB] HYDROcodone/APAP 5-325 [[place] 1 each PO Q6HR PRN #30 tablet 05/10/15 Unknown Rx 5/325] Diclofenac Sodium 75 mg PO BID #14 tablet.dr 07/16/16 Unknown Rx Aspirin 81 mg PO DAILY #30 tab.chew 12/17/16 Unknown Rx Prednisone [predniSONE 10 mg 10 mg PO .TAPER #1 tab.ds.pk 12/17/16 Unknown Rx (6-Day Pack, 21 Tabs)] Cyclobenzaprine [Flexeril 10 MG 10 mg PO QHS PRN #20 tablet 03/20/17 Unknown Rx TAB] Naproxen [Naprosyn TAB] 500 mg PO BID #40 tablet 03/20/17 Unknown Rx tiZANidine [Zanaflex] 4 mg PO DAILY #10 tablet 03/20/17 Unknown Rx Acetaminophen [Tylenol Arthritis] 650 mg PO Q6HR PRN #30 tablet.er 12/11/17 Unknown Rx Ibuprofen [Motrin] 600 mg PO Q8H PRN #30 tablet 12/11/17 Unknown Rx ED Physical Exam - General Limitations: Physical Limitation General appearance: obese - Head Head exam: Present: atraumatic, normocephalic - Eye Eye exam: Present: normal appearance, EOMI. Absent: nystagmus - ENT ENT exam: Present: normal exam, normal orophraynx, mucous membranes moist, normal external ear exam - Neck Neck exam: Present: normal inspection, full ROM. Absent: tenderness, meningismus - Respiratory Respiratory exam: Present: normal lung sounds bilaterally. Absent: respiratory distress - Cardiovascular Cardiovascular Exam: Present: regular rate, normal rhythm, normal heart sounds. Absent: bradycardia, tachycardia, irregular rhythm, systolic murmur, diastolic murmur, rubs, gallop - GI/Abdominal GI/Abdominal exam: Present: soft, normal bowel sounds. Absent: distended, tenderness, guarding, rebound, rigid, pulsatile mass - Extremities Exam Extremities exam: Present: normal inspection, full ROM, normal capillary refill , other (2+ pulses noted in the bilateral upper, lower extremities. Compartments soft. No long bony tenderness. The pelvis is stable.). Absent: pedal edema, joint swelling, calf tenderness - Back Exam Back exam: Present: normal inspection, full ROM, paraspinal tenderness - Neurological Exam Neurological exam: Present: alert, oriented X3, reflexes normal (2+ biceps reflexes bilaterally, 2+ triceps reflexes bilaterally, 2+ quadriceps reflexes bilaterally, downgoing plantar reflexes bilaterally.). Absent: normal gait ( patient walks with a slight limp), motor sensory deficit (station is intact to light touch, pinprick in the bilateral upper, lower extremities. Proprioception is intact in the bilateral lower extremities) - Psychiatric Psychiatric exam: Present: normal affect, normal mood - Skin Skin exam: Present: warm, dry, intact, normal color. Absent: rash ED Course Vital Signs 12/11/17 17:07 Temperature 98.4 F Pulse Rate 87 Respiratory 16 Rate Blood Pressure 134/84 O2 Sat by Pulse 100 Oximetry ED Medical Decision Making - Lab Data Result diagrams: 12/11/17 17:35 12/11/17 17:35 Vital Signs 07/26/18 17:07 Temperature 98.4 F Pulse Rate 87 Respiratory 16 Rate Blood Pressure 134/84 O2 Sat by Pulse 100 Oximetry Lab Results 12/11/17 12/11/17 12/11/17 Range/Units 17:35 17:35 17:35 WBC 5.5 (4.5-11.0) K/mm3 RBC 4.30 (3.65-5.03) M/mm3 Hgb 13.4 (10.1-14.3) gm/dl Hct 40.0 (30.3-42.9) % MCV 93 (79-97) fl MCH 31 (28-32) pg MCHC 34 (30-34) % RDW 13.3 (13.2-15.2) % Plt Count 345 (140-440) K/mm3 Lymph % (Auto) 50.1 H (13.4-35.0) % [place] % (Auto) 7.6 H (0.0-7.3) % Eos % (Auto) 2.1 (0.0-4.3) % Baso % (Auto) 0.2 (0.0-1.8) % Lymph # 2.7 (1.2-5.4) K/mm3 [place] # 0.4 (0.0-0.8) K/mm3 Eos # 0.1 (0.0-0.4) K/mm3 Baso # 0.0 (0.0-0.1) K/mm3 Seg Neutrophils % 40.0 (40.0-70.0) % Seg Neutrophils # 2.2 (1.8-7.7) K/mm3 D-Dimer 204.45 (0-234) ng/mlDDU Sodium 138 (137-145) mmol/L Potassium 3.9 (3.6-5.0) mmol/L Chloride 100.1 (98-107) mmol/L Carbon Dioxide 27 (22-30) mmol/L Anion Gap 15 mmol/L BUN 12 (7-17) mg/dL Creatinine 0.8 (0.7-1.2) mg/dL Estimated GFR > 60 ml/min BUN/Creatinine Ratio 15 % Glucose 94 (65-100) mg/dL Calcium 9.3 (8.4-10.2) mg/dL - Medical Decision Making Differential diagnosis, including the not limited to: Radiculopathy, musculoskeletal pain Assessment and plan: 47-year-old female with probable left-sided lumbar radiculopathy. She walks with a slight limp, has downgoing plantar reflexes bilaterally, sensation is intact to light touch, pinprick and proprioception in the bilateral lower extremities, and motor strength is appropriate in the bilateral lower extremities. She has no bladder or bowel retention/incontinence. Her exam today is not consistent with epidural compression syndrome, and patient had an MRI approximately one year ago which was negative for significant findings. Patient presented after hours, and therefore a case management and physical therapy consult will be placed by myself for evaluation for outpatient physical therapy. She will be started on NSAIDs, weightbearing as tolerated, physical activities as tolerated, she will be referred to outpatient follow-up. Critical care attestation.: If time is entered above; I have spent that time in minutes in the direct care of this critically ill patient, excluding procedure time. ED Disposition Clinical Impression: Radiculopathy Disposition: - TO HOME OR SELFCARE Is pt being admited?: No Does the pt Need Aspirin: No Condition: Good Instructions: Lumbar Radiculopathy (ED) Additional Instructions: Rest, and avoid heavy lifting. Avoid strenuous physical activities. Weightbearing as tolerated with the cane. Take the pain medication as directed. A case management consult physical therapy consults have been ordered , and patient should receive a phone call from case management's to assist in setting up for home physical therapy. Follow-up with either her primary care doctor, pain specialist or any of the listed spine specialists within the next 5-7 days. Return to the ER right away with new pain, worsened pain, migration of pain, extremity weakness, inability to bear weight, lateral bowel retention/incontinence, projectile vomiting, change in mental status, confusion. Referrals: RAE MONZON MD [Primary Care Provider] - 3-5 Days CORONA LIMA MD [Staff Physician] - 3-5 Days BEVERLY HAYES MD [Staff Physician] - 3-5 Days
== END 2017-12-11 21:45 | disposition home or self-care (01) ==
LOC: ED 16:34
DX: M54.16 Radiculopathy, lumbar region (principal); I10 Essential (primary) hypertension; J45.909 Unspecified asthma, uncomplicated; Z98.51 Tubal ligation status; Z90.710 Acquired absence of both cervix and uterus; Z79.899 Other long term (current) drug therapy
CPT/HCPCS: 36415; 80048; 85025; 85379; 96372; 99283; J1885

== ENCOUNTER 2018-01-26 10:32 | Emergency (ER) | payer SELFPAY ==
[2018-01-26 11:17] VITALS: BP 126/72
[2018-01-26] MEDS ORDERED: TORADOL IM ONE (12:14)
[2018-01-26] MEDS ORDERED: DECADRON IM ONE (12:14)
[2018-01-26] MEDS ORDERED: ULTRAM PO ONE (12:16)
--- NOTE | 2018-01-26 12:21 | Emergency Department Report ---
ED Back Pain/Injury HPI - General Chief Complaint: Back Pain/Injury Stated Complaint: BACK PAIN Time Seen by Provider: 01/26/18 12:05 Source: patient Limitations: No Limitations - History of Present Illness Initial Comments: 47-year-old female with history of back pain 4 years presents to ED with complaint of exacerbation of low back pain for the last 3 days. Patient reports radiation to bilateral lower extremities. Patient is ambulatory. Denies fever. Denies difficulty urinating or urinary frequency. Patient denies numbness and tingling in lower extremities. Patient reports that she does a lot of bending at work. Patient suspects this is what has caused the flare up MD Complaint: back pain -: Gradual, days(s) (3) Similar Symptoms Previously: Yes Place: work Radiation: left leg, right leg Severity: moderate Quality: sharp Consistency: constant Improves With: immobilization Worsens With: movement, walking Context: bending Associated Symptoms: denies: weakness, numbness, difficulty walking, difficulty urinating, incontinence, fever/chills, abdominal pain Treatments Prior to Arrival: NSAIDS, prescription analgesics - Related Data Previous Rx's Medication Instructions Recorded Last Taken Type Gabapentin [Neurontin] 300 mg PO BID #60 capsule 12/11/14 Unknown Rx Metoprolol Xl [Metoprolol 25 mg PO QDAY #30 tablet 12/11/14 Unknown Rx SUCCINATE ER TAB] HYDROcodone/APAP 5-325 [[place] 1 each PO Q6HR PRN #30 tablet 05/10/15 Unknown Rx 5/325] Diclofenac Sodium 75 mg PO BID #14 tablet.dr 07/16/16 Unknown Rx Aspirin 81 mg PO DAILY #30 tab.chew 12/17/16 Unknown Rx Prednisone [predniSONE 10 mg 10 mg PO .TAPER #1 tab.ds.pk 12/17/16 Unknown Rx (6-Day Pack, 21 Tabs)] Cyclobenzaprine [Flexeril 10 MG 10 mg PO QHS PRN #20 tablet 03/20/17 Unknown Rx TAB] Naproxen [Naprosyn TAB] 500 mg PO BID #40 tablet 03/20/17 Unknown Rx tiZANidine [Zanaflex] 4 mg PO DAILY #10 tablet 03/20/17 Unknown Rx Acetaminophen [Tylenol Arthritis] 650 mg PO Q6HR PRN #30 tablet.er 12/11/17 Unknown Rx Ibuprofen [Motrin] 600 mg PO Q8H PRN #30 tablet 12/11/17 Unknown Rx Naproxen [Naprosyn] 500 mg PO BID PRN #20 tablet 01/26/18 Unknown Rx methOCARBAMOL [Robaxin TAB] 500 mg PO Q6H PRN #20 tablet 01/26/18 Unknown Rx predniSONE [Prednisone] 50 mg PO DAILY #5 tablet 01/26/18 Unknown Rx Allergies Allergy/AdvReac Type Severity Reaction Status Date / Time No Known Allergies Allergy Verified 05/10/15 11:46 ED Review of Systems ROS: Stated complaint: BACK PAIN Other details as noted in HPI Comment: All other systems reviewed and negative Gastrointestinal: denies: abdominal pain, nausea, vomiting Genitourinary: other (incontinence). denies: dysuria, frequency Musculoskeletal: back pain Neurological: denies: weakness, numbness ED Past Medical Hx - Past Medical History Hx Hypertension: Yes Hx Asthma: Yes Additional medical history: SLEEP APNEA-No C-PAP, chronic back pain - Surgical History Additional Surgical History: hysterectomy. TUBAL LIGATION - Social History Smoking Status: Never Smoker Substance Use Type: None - Medications Home Medications: Home Medications Medication Instructions Recorded Confirmed Last Taken Type Gabapentin [Neurontin] 300 mg PO BID #60 capsule 12/11/14 Unknown Rx Metoprolol Xl [Metoprolol 25 mg PO QDAY #30 tablet 12/11/14 Unknown Rx SUCCINATE ER TAB] HYDROcodone/APAP 5-325 [[place] 1 each PO Q6HR PRN #30 tablet 05/10/15 Unknown Rx 5/325] Diclofenac Sodium 75 mg PO BID #14 tablet.dr 07/16/16 Unknown Rx Aspirin 81 mg PO DAILY #30 tab.chew 12/17/16 Unknown Rx Prednisone [predniSONE 10 mg 10 mg PO .TAPER #1 tab.ds.pk 12/17/16 Unknown Rx (6-Day Pack, 21 Tabs)] Cyclobenzaprine [Flexeril 10 MG 10 mg PO QHS PRN #20 tablet 03/20/17 Unknown Rx TAB] Naproxen [Naprosyn TAB] 500 mg PO BID #40 tablet 03/20/17 Unknown Rx tiZANidine [Zanaflex] 4 mg PO DAILY #10 tablet 03/20/17 Unknown Rx Acetaminophen [Tylenol Arthritis] 650 mg PO Q6HR PRN #30 tablet.er 12/11/17 Unknown Rx Ibuprofen [Motrin] 600 mg PO Q8H PRN #30 tablet 12/11/17 Unknown Rx Naproxen [Naprosyn] 500 mg PO BID PRN #20 tablet 01/26/18 Unknown Rx methOCARBAMOL [Robaxin TAB] 500 mg PO Q6H PRN #20 tablet 01/26/18 Unknown Rx predniSONE [Prednisone] 50 mg PO DAILY #5 tablet 01/26/18 Unknown Rx ED Physical Exam - General Limitations: No Limitations General appearance: alert, in no apparent distress - Head Head exam: Present: atraumatic, normocephalic - Eye Eye exam: Present: normal appearance - ENT ENT exam: Present: mucous membranes moist - Neck Neck exam: Present: normal inspection - Respiratory Respiratory exam: Present: normal lung sounds bilaterally. Absent: respiratory distress - Cardiovascular Cardiovascular Exam: Present: regular rate, normal rhythm - GI/Abdominal GI/Abdominal exam: Present: soft. Absent: tenderness - Extremities Exam Extremities exam: Present: normal inspection, full ROM - Back Exam Back exam: Present: normal inspection, paraspinal tenderness (bilateral paraspinal tenderness at approx L4 and L5) - Neurological Exam Neurological exam: Present: alert, altered, oriented X3, normal gait, other ( BLE strength 5/5 with normal sensation present) - Psychiatric Psychiatric exam: Present: normal affect, normal mood - Skin Skin exam: Present: warm, dry, intact ED Course Vital Signs 01/26/18 11:14 Temperature 99 F Pulse Rate 89 Respiratory 18 Rate Blood Pressure 126/72 O2 Sat by Pulse 99 Oximetry ED Medical Decision Making - Medical Decision Making 47-year-old female with history of back pain presents with exacerbation of same back pain that she is experienced in the past. Patient denies any symptoms concerning for cord compression. Patient is ambulatory has 5 out of 5 strength in bilateral lower extremities with normal sensation. Will prescribe steroids, anti-inflammatory, and muscle relaxer. Patient advised follow-up with ortho. Patient has been instructed on return precautions. - Differential Diagnosis sciatica, lumbar strain, Critical care attestation.: If time is entered above; I have spent that time in minutes in the direct care of this critically ill patient, excluding procedure time. ED Disposition Clinical Impression: Lumbar strain, Radiculopathy Disposition: TO HOME OR SELFCARE Is pt being admited?: No Condition: Stable Instructions: Lumbar Radiculopathy (ED), Low Back Strain (ED) Prescriptions: methOCARBAMOL [Robaxin TAB] 500 mg PO Q6H PRN #20 tablet PRN Reason: Spasms Naproxen [Naprosyn] 500 mg PO BID PRN #20 tablet PRN Reason: Pain, Moderate (4-6) predniSONE [Prednisone] 50 mg PO DAILY #5 tablet Referrals: PRIMARY CAREMD [Primary Care Provider] - 3-5 Days IMANI LLANES MD [Staff Physician] - 3-5 Days
== END 2018-01-26 12:42 | disposition home or self-care (01) ==
LOC: ED 10:32
DX: M54.16 Radiculopathy, lumbar region (principal); I10 Essential (primary) hypertension; G89.29 Other chronic pain; Z98.51 Tubal ligation status; Z79.899 Other long term (current) drug therapy; S39.012A Strain of muscle, fascia and tendon of lower back, initial encounter; X50.1XXA Overexertion from prolonged static or awkward postures, initial encounter; Y93.89 Activity, other specified; Y92.69 Other specified industrial and construction area as the place of occurrence of the external cause; Y99.0 Civilian activity done for income or pay
CPT/HCPCS: 96372; 99282; J1100; J1885

== ENCOUNTER 2018-09-13 16:19 | Emergency (ER) | payer OTHER ==
--- NOTE | 2018-09-13 16:42 | Emergency Department Report ---
Blank Doc - Documentation Documentation: 48 y/o comes in for chest pain and left side pain 1 day. Had SOB and dizziness
[2018-09-13 17:01] LABS: Basophils % (Auto) 0.3 % (0.0-1.8); Eosinophils # (Auto) 0.2 K/mm3 (0.0-0.4); Eosinophils % (Auto) 3.3 % (0.0-4.3); Hematocrit 41.1 % (30.3-42.9); Hemoglobin 13.8 gm/dl (10.1-14.3); Lymphocytes # (Auto) 3.4 K/mm3 (1.2-5.4); Lymphocytes % (Auto) 49.1 % (13.4-35.0); Mean Corpuscular HGB Conc 34 % (30-34); Mean Corpuscular Volume 93 fl (79-97); Monocytes # (Auto) 0.5 K/mm3 (0.0-0.8); Monocytes % (Auto) 6.9 % (0.0-7.3); Platelet Count 349 K/mm3 (140-440); Red Blood Count 4.41 M/mm3 (3.65-5.03); Red Cell Distribution Width 13.9 % (13.2-15.2)
[2018-09-13] MEDS ORDERED: NORCO 5/325 PO ONE (17:17)
[2018-09-13 17:18] LABS: Alanine Aminotransferase 13 units/L (7-56); Albumin 3.7 g/dL (3.9-5); BUN/Creatinine Ratio 14; Blood Urea Nitrogen 13 mg/dL (7-17); Calcium 9.4 mg/dL (8.4-10.2); Hemolysis Index 27
--- NOTE | 2018-09-13 17:45 | XRay Report ---
PROCEDURE: XR CHEST ROUTINE 2V TECHNIQUE: PA and lateral views of the chest HISTORY: chest pain COMPARISONS: A chest x-ray dated May 10, 2015 is not available for review at the time of this di ctation. FINDINGS: There is prominence of the interstitial markings in both lungs with peribronchial thickening, acute v ersus chronic. There appear to be patchy areas of pulmonary consolidation in the lower lung tejada bilaterally, righ t greater than left. Atelectasis versus infiltrates. There is no evidence of pneumothorax or pleural fluid collection. The cardiomediastinal silhouette is normal in appearance. The bony structures are unremarkable. IMPRESSION: 1. Prominence of the interstitial markings in both lungs with peribronchial thickening, acute versus chronic. In the proper clinical setting this may represent changes of bronchiolitis. 2. Appearance of atelectasis versus infiltrates lower lung tejada bilaterally. If further imaging is required, CT chest may be helpful. This document is electronically signed by Evon Mijares MD., September 13 2018 05:43:49 PM ET
--- NOTE | 2018-09-13 17:51 | Emergency Department Report ---
Minor Respiratory - HPI Chief Complaint: Dyspnea/Respdistress Stated Complaint: CHEST PAIN Time Seen by Provider: 09/13/18 16:36 Duration: 1 Day Pain Location: Chest (left sided under the left breast) Minor Respiratory: Yes Able to Tolerate Fluids, Yes Cough (Non productive cough has been present for a week), Yes Chest Pain, Yes Shortness of Breath, No Rhinorrhea, No Sore Throat, No Ear Pain, No Sick Contacts, No Hemoptysis, No Fever ED Review of Systems ROS: Stated complaint: CHEST PAIN Other details as noted in HPI Comment: All other systems reviewed and negative ED Past Medical Hx - Past Medical History Hx Hypertension: Yes Hx Asthma: Yes Additional medical history: SLEEP APNEA-No C-PAP, chronic back pain - Surgical History Additional Surgical History: hysterectomy. TUBAL LIGATION - Social History Smoking Status: Never Smoker Substance Use Type: None - Medications Home Medications: Home Medications Medication Instructions Recorded Confirmed Last Taken Type Gabapentin [Neurontin] 300 mg PO BID #60 capsule 12/11/14 Unknown Rx Metoprolol Xl [Metoprolol 25 mg PO QDAY #30 tablet 12/11/14 Unknown Rx SUCCINATE ER TAB] HYDROcodone/APAP 5-325 [[place] 1 each PO Q6HR PRN #30 tablet 05/10/15 Unknown Rx 5/325] Diclofenac Sodium 75 mg PO BID #14 tablet.dr 07/16/16 Unknown Rx Aspirin 81 mg PO DAILY #30 tab.chew 12/17/16 Unknown Rx Prednisone [predniSONE 10 mg 10 mg PO .TAPER #1 tab.ds.pk 12/17/16 Unknown Rx (6-Day Pack, 21 Tabs)] Cyclobenzaprine [Flexeril 10 MG 10 mg PO QHS PRN #20 tablet 03/20/17 Unknown Rx TAB] Naproxen [Naprosyn TAB] 500 mg PO BID #40 tablet 03/20/17 Unknown Rx tiZANidine [Zanaflex] 4 mg PO DAILY #10 tablet 03/20/17 Unknown Rx Acetaminophen [Tylenol Arthritis] 650 mg PO Q6HR PRN #30 tablet.er 12/11/17 Unknown Rx Ibuprofen [Motrin] 600 mg PO Q8H PRN #30 tablet 12/11/17 Unknown Rx Naproxen [Naprosyn] 500 mg PO BID PRN #20 tablet 01/26/18 Unknown Rx methOCARBAMOL [Robaxin TAB] 500 mg PO Q6H PRN #20 tablet 01/26/18 Unknown Rx predniSONE [Prednisone] 50 mg PO DAILY #5 tablet 01/26/18 Unknown Rx Omeprazole 20 mg PO QDAY #30 tablet. 03/20/18 Unknown Rx Acetaminophen [Acetaminophen TAB] 500 mg PO Q6HR PRN #30 tablet 05/17/18 Unknown Rx ALBUTEROL Inhaler(NF) [VENTOLIN 2 puff IH Q4HRT #1 inha 09/13/18 Unknown Rx Inhaler(NF)] Benzonatate [Tessalon Perles] 100 mg PO Q8HR #10 capsule 09/13/18 Unknown Rx predniSONE [Deltasone] 20 mg PO QDAY #5 tab 09/13/18 Unknown Rx traMADol [Ultram] 50 mg PO Q6HR PRN #12 tablet 09/13/18 Unknown Rx Minor Respiratory Exam - Exam General: Vital signs noted. No distress. Alert and acting appropriately. HEENT: Yes Moist Mucous Membranes, No Pharyngeal Erythema, No Pharyngeal Exudates, No Rhinorrhea, No Conjuctival Injection, No Frontal Tenderness, No Maxillary Tenderness Ear: Neither TM Bulge, Neither TM Erythema, Neither EAC Pain, Neither EAC Discharge Neck: Yes Supple, No Adenopathy Lungs: Yes Good Air Exchange, Yes Cough, No Wheezes, No Ronchi, No Stridor, No Labored Respirations, No Retractions, No Use of Accessory Muscles, No Other Abnormal Lung Sounds Heart: Yes Regular, No Murmur Abdomen: Yes Normal Bowel Sounds, No Tenderness, No Peritoneal Signs Skin: No Rash, No Edema Neurologic: Alert and oriented, no deficits. Musculoskeletal: Unremarkable. ED Course Vital Signs 09/13/18 09/13/18 09/13/18 16:41 17:27 17:30 Temperature 98.5 F Pulse Rate 76 74 Respiratory 18 16 15 Rate Blood Pressure 144/53 126/71 O2 Sat by Pulse 100 100 99 Oximetry ED Medical Decision Making - Lab Data Result diagrams: 09/13/18 16:53 09/13/18 16:50 Lab Results 09/13/18 09/13/18 Range/Units 16:50 16:53 WBC 6.9 (4.5-11.0) K/mm3 RBC 4.41 (3.65-5.03) M/mm3 Hgb 13.8 (10.1-14.3) gm/dl Hct 41.1 (30.3-42.9) % MCV 93 (79-97) fl MCH 31 (28-32) pg MCHC 34 (30-34) % RDW 13.9 (13.2-15.2) % Plt Count 349 (140-440) K/mm3 Lymph % (Auto) 49.1 H (13.4-35.0) % Mclean % (Auto) 6.9 (0.0-7.3) % Eos % (Auto) 3.3 (0.0-4.3) % Baso % (Auto) 0.3 (0.0-1.8) % Lymph # 3.4 (1.2-5.4) K/mm3 Mclean # 0.5 (0.0-0.8) K/mm3 Eos # 0.2 (0.0-0.4) K/mm3 Baso # 0.0 (0.0-0.1) K/mm3 Seg Neutrophils % 40.4 (40.0-70.0) % Seg Neutrophils # 2.8 (1.8-7.7) K/mm3 Sodium 137 (137-145) mmol/L Potassium 4.5 (3.6-5.0) mmol/L Chloride 101.0 (98-107) mmol/L Carbon Dioxide 26 (22-30) mmol/L Anion Gap 15 mmol/L BUN 13 (7-17) mg/dL Creatinine 0.9 (0.7-1.2) mg/dL Estimated GFR > 60 ml/min BUN/Creatinine Ratio 14 % Glucose 91 (65-100) mg/dL Calcium 9.4 (8.4-10.2) mg/dL Total Bilirubin 0.20 (0.1-1.2) mg/dL AST 14 (5-40) units/L ALT 13 (7-56) units/L Alkaline Phosphatase 76 (35-129) units/L Troponin T < 0.010 (0.00-0.029) ng/mL Total Protein 7.7 (6.3-8.2) g/dL Albumin 3.7 L (3.9-5) g/dL Albumin/Globulin Ratio 0.9 % - Radiology Data Radiology results: image reviewed (CXR WNL) - Medical Decision Making Patient with acute bronchitis with likely CAN neuritis secondary to the coughing. Patient was given meds for symptomatic relief but discharged home. Critical care attestation.: If time is entered above; I have spent that time in minutes in the direct care of this critically ill patient, excluding procedure time. ED Disposition Clinical Impression: Costochondral chest pain Acute bronchitis Qualifiers: Bronchitis organism: unspecified organism Qualified Code(s): J20.9 - Acute bronchitis, unspecified Disposition: - TO HOME OR SELFCARE Is pt being admited?: No Does the pt Need Aspirin: No Condition: Stable Instructions: Acute Bronchitis (ED), Costochondritis (ED), Chest Pain (ED) Forms: Work/School Release Form(ED) Time of Disposition: 17:53
[2018-09-13 18:43] VITALS: BP 116/69
== END 2018-09-13 18:41 | disposition home or self-care (01) ==
LOC: ED 16:19
DX: J20.9 Acute bronchitis, unspecified (principal); M94.0 Chondrocostal junction syndrome [Tietze]; J45.909 Unspecified asthma, uncomplicated; I10 Essential (primary) hypertension; G89.29 Other chronic pain; Z98.51 Tubal ligation status; Z90.710 Acquired absence of both cervix and uterus
CPT/HCPCS: 36415; 71046; 80053; 84484; 85025; 93005; 93010

== ENCOUNTER 2021-08-04 10:26 | Inpatient (IN) | payer SELFPAY ==
--- NOTE | 2021-08-04 11:50 | Event Note ---
ED Screening Note Date of service: 08/04/21 Time: 11:49 ED Screening Note: 50-year-old black female with a past medical history of hypertension and diabetes presents to the emergency department with a 5-day history of chest pain. She says that since Friday she has had intermittent periods where it feels like her heart is racing then she has sharp pain and JUAN. She states that she is also has shortness of breath, dizziness, and diaphoresis with the chest pain. She denies nausea. This initial assessment/diagnostic orders/clinical plan/treatment(s) is/are subject to change based on patients health status, clinical progression and re- assessment by fellow clinical providers in the ED. Further treatment and workup at subsequent clinical providers discretion. Patient/guardian urged not to elope from the ED as their condition may be serious if not clinically assessed and managed. Initial orders include:
[2021-08-04] MEDS ORDERED: NITROGLYCERIN 2% OINT 1 GM TP ONE (12:28)
[2021-08-04] MEDS ORDERED: fentaNYL 100 MCG/2 ML INJ IV ONE (12:28)
[2021-08-04] MEDS ORDERED: ASPIRIN 325 MG TAB PO ONE (12:29)
--- NOTE | 2021-08-04 12:31 | XRay Report ---
CHEST 2 VIEWS INDICATION / CLINICAL INFORMATION: chest pain. COMPARISON: 09/13/2018 FINDINGS: SUPPORT DEVICES: None. HEART / MEDIASTINUM: No significant abnormality. LUNGS / PLEURA: No significant pulmonary or pleural abnormality. No pneumothorax. ADDITIONAL FINDINGS: No significant additional findings. IMPRESSION: 1. No acute findings. Signer Name: Reddy Duffy DO Signed: 08/04/2021 12:26 PM Workstation Name: [id number]
--- NOTE | 2021-08-04 12:34 | Emergency Department Report ---
HPI - General Chief Complaint: Chest Pain Time Seen by Provider: 08/04/21 12:16 - HPI HPI: Reassessment 3 --> room 25 The patient is a 50-year-old female present with a chief complaint of palpitations and chest pain. The patient states for the past 6 days she has had intermittent palpitations. Patient states today she developed intermittent substernal chest pain described as sticking in nature. Patient admits to shortness of breath and some diaphoresis with her pain but denies nausea/vomiting. Patient currently gives her chest pain score of 1-2/10. The patient states her last stress test occurred "a long time ago" her last cardiac catheterization occurred in 2003 ED Past Medical Hx - Past Medical History Hx Hypertension: Yes Hx Diabetes: Yes Hx Asthma: Yes Additional medical history: SLEEP APNEA-No C-PAP, chronic back pain - Surgical History Additional Surgical History: hysterectomy. TUBAL LIGATION - Family History Family history: no significant - Social History Smoking Status: Never Smoker Substance Use Type: None (Denies illicit drug use) - Medications Home Medications: Home Medications Medication Instructions Recorded Confirmed Last Taken Type Gabapentin 300 mg PO BID #60 capsule 12/11/14 Unknown Rx Metoprolol Xl [Metoprolol 25 mg PO QDAY #30 tablet 12/11/14 Unknown Rx SUCCINATE ER TAB] HYDROcodone/APAP 5-325 [[place] 1 each PO Q6HR PRN #30 tablet 05/10/15 Unknown Rx 5/325] Diclofenac Sodium 75 mg PO BID #14 tablet.dr 07/16/16 Unknown Rx Aspirin 81 mg PO DAILY #30 tab.chew 12/17/16 Unknown Rx Prednisone [predniSONE 10 mg 10 mg PO .TAPER #1 tab.ds.pk 12/17/16 Unknown Rx (6-Day Pack, 21 Tabs)] Cyclobenzaprine [Flexeril 10 MG 10 mg PO QHS PRN #20 tablet 03/20/17 Unknown Rx TAB] Naproxen [Naprosyn TAB] 500 mg PO BID #40 tablet 03/20/17 Unknown Rx tiZANidine [Zanaflex 4mg TAB] 4 mg PO DAILY #10 tablet 03/20/17 Unknown Rx Acetaminophen [Tylenol Arthritis] 650 mg PO Q6HR PRN #30 tablet.er 12/11/17 Unknown Rx Ibuprofen [Motrin] 600 mg PO Q8H PRN #30 tablet 12/11/17 Unknown Rx Naproxen [Naprosyn] 500 mg PO BID PRN #20 tablet 01/26/18 Unknown Rx methOCARBAMOL [Robaxin TAB] 500 mg PO Q6H PRN #20 tablet 01/26/18 Unknown Rx predniSONE [Prednisone] 50 mg PO DAILY #5 tablet 01/26/18 Unknown Rx Omeprazole 20 mg PO QDAY #30 tablet. 03/20/18 Unknown Rx Acetaminophen [Acetaminophen TAB] 500 mg PO Q6HR PRN #30 tablet 05/17/18 Unknown Rx ALBUTEROL Inhaler(NF) [VENTOLIN 2 puff IH Q4HRT #1 inha 09/13/18 Unknown Rx Inhaler(NF)] Benzonatate [Tessalon Perles] 100 mg PO Q8HR #10 capsule 09/13/18 Unknown Rx predniSONE [Deltasone] 20 mg PO QDAY #5 tab 09/13/18 Unknown Rx traMADoL [Ultram] 50 mg PO Q6HR PRN #12 tablet 09/13/18 Unknown Rx ED Review of Systems ROS: Stated complaint: CHEST PAIN X5 DAYS Other details as noted in HPI Constitutional: diaphoresis Eyes: denies: eye pain ENT: denies: throat pain Respiratory: shortness of breath Cardiovascular: chest pain, palpitations Endocrine: no symptoms reported Gastrointestinal: denies: nausea, vomiting Genitourinary: denies: dysuria Musculoskeletal: denies: back pain Neurological: denies: headache Physical Exam - Physical Exam Vital Signs: Vital Signs 08/04/21 10:36 Temperature 98.5 F Pulse Rate 84 Respiratory 20 Rate Blood Pressure 135/80 O2 Sat by Pulse 98 Oximetry Physical Exam: GENERAL: The patient is well-developed well-nourished female sitting in chair not appearing to be in acute distress. [] HEENT: Normocephalic. Atraumatic. Extraocular motions are intact. Patient has moist mucous membranes. NECK: Supple. Trachea midline CHEST/LUNGS: Clear to auscultation. There is no respiratory distress noted. HEART/CARDIOVASCULAR: Regular. There is no tachycardia. There is no gallop rub or murmur. ABDOMEN: Abdomen is soft, nontender. Patient has normal bowel sounds. There is no abdominal distention. SKIN: There is no rash. There is no edema. There is no diaphoresis. NEURO: The patient is awake, alert, and oriented. The patient is cooperative. The patient has no focal neurologic deficits. The patient has normal speech. GCS 15 MUSCULOSKELETAL: There is no evidence of acute injury. 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 Michael Bailey-recommends giving metoprolol 50 mg XL p.o. x1 now, admitting for observation and obtain echocardiogram ED Medical Decision Making - Lab Data Result diagrams: 08/04/21 12:21 08/04/21 12:21 Laboratory Tests 08/04/21 08/04/21 08/04/21 12:21 12:21 12:21 WBC 6.2 RBC 4.26 Hgb 13.4 Hct 39.0 MCV 92 MCH 32 MCHC 34 RDW 13.8 Plt Count 270 Lymph % (Auto) 32.3 Curry % (Auto) 10.2 H Eos % (Auto) 3.9 Baso % (Auto) 0.3 Lymph # (Auto) 2.0 [place] # (Auto) 0.6 Eos # (Auto) 0.2 Baso # (Auto) 0.0 Seg Neutrophils % 53.3 Seg Neutrophils # 3.3 D-Dimer Sodium 136 L Potassium 4.2 Chloride 101.0 Carbon Dioxide 25 Anion Gap 14 BUN 15 Creatinine 0.9 Estimated GFR > 60 BUN/Creatinine Ratio 17 Glucose 96 Calcium 9.8 Magnesium 1.80 Total Bilirubin 0.30 AST 15 ALT 14 Alkaline Phosphatase 78 Total Creatine Kinase 194 H CK-MB (CK-2) 3.0 Troponin T < 0.010 NT-Pro-B Natriuret Pep 17.55 Total Protein 7.4 Albumin 4.0 Albumin/Globulin Ratio 1.2 TSH Free T4 08/04/21 08/04/21 12:30 12:30 WBC RBC Hgb Hct MCV MCH MCHC RDW Plt Count Lymph % (Auto) Curry % (Auto) Eos % (Auto) Baso % (Auto) Lymph # (Auto) Curry # (Auto) Eos # (Auto) Baso # (Auto) Seg Neutrophils % Seg Neutrophils # D-Dimer 227.64 Sodium Potassium Chloride Carbon Dioxide Anion Gap BUN Creatinine Estimated GFR BUN/Creatinine Ratio Glucose Calcium Magnesium Total Bilirubin AST ALT Alkaline Phosphatase Total Creatine Kinase CK-MB (CK-2) Troponin T NT-Pro-B Natriuret Pep Total Protein Albumin Albumin/Globulin Ratio TSH 1.480 Free T4 0.99 - EKG Data -: EKG Interpreted by Me EKG shows normal: sinus rhythm Rate: normal - EKG Data When compared to previous EKG there are: previous EKG unavailable 08/04/21 12:33 Intermittent bigeminy/quadrigeminy - Radiology Data Radiology results: report reviewed (Chest x-ray), image reviewed (Chest x-ray) interpreted by me: Chest x-ray-no definite focal infiltrates, no pneumothorax [facility] [address] [place] [address] XRay Report Signed Patient: STEPHANE MYERS MR#: [id number] : 1970 Acct:[id number] Age/Sex: 50 / F ADM Date: 08/04/21 Loc: ED Attending Dr: Ordering Physician: ROSENDA WILLETT Date of Service: 08/04/21 Procedure(s): XR chest routine 2V Accession Number(s): [id number] cc: ROSENDA WILLETT Fluoro Time In Minutes: CHEST 2 VIEWS INDICATION / CLINICAL INFORMATION: chest pain. COMPARISON: 09/13/2018 FINDINGS: SUPPORT DEVICES: None. HEART / MEDIASTINUM: No significant abnormality. LUNGS / PLEURA: No significant pulmonary or pleural abnormality. No pneumothorax. ADDITIONAL FINDINGS: No significant additional findings. IMPRESSION: 1. No acute findings. Signer Name: Reddy Katz DO Signed: 08/04/2021 12:26 PM Workstation Name: [id number] Transcribed By: YESENIA Dictated By: REDDY KATZ DO Electronically Authenticated By: REDDY KATZ DO Signed Date/Time: 08/04/21 1226 DD/ 25 TD/TT: - Differential Diagnosis Dysrhythmia, ACS, PE, pericarditis, GERD Critical care attestation.: If time is entered above; I have spent that time in minutes in the direct care of this critically ill patient, excluding procedure time. ED Disposition Clinical Impression: Chest pain, Bigeminy Disposition: 09 ADMITTED INPATIENT Is pt being admited?: Yes Does the pt Need Aspirin: Yes Condition: Fair Instructions: Nonspecific Chest Pain, Adult Referrals: PRIMARY CARE,MD [Primary Care Provider] - 3-5 Days Time of Disposition: 13:28 (Hospitalist called (Dr. Cisneros)) Heart Score - HEART Score History: Moderately suspicious EKG: Non-specific Age: 45-65 Risk factors: 1-2 risk factors Troponin: < normal limit HEART Score: 4 - EKG Read Time Time EKG Completed: 10:41 EKG Read Time: 11:41
[2021-08-04 12:43] LABS: Basophils % (Auto) 0.3 % (0.0-1.8); Eosinophils # (Auto) 0.2 K/mm3 (0.0-0.4); Eosinophils % (Auto) 3.9 % (0.0-4.3); Hemoglobin 13.4 gm/dl (10.1-14.3); Lymphocytes % (Auto) 32.3 % (13.4-35.0); Mean Corpuscular HGB Conc 34 % (30-34); Mean Corpuscular Volume 92 fl (79-97); Monocytes # (Auto) 0.6 K/mm3 (0.0-0.8); Monocytes % (Auto) 10.2 % (0.0-7.3); Platelet Count 270 K/mm3 (140-440); Red Blood Count 4.26 M/mm3 (3.65-5.03); Red Cell Distribution Width 13.8 % (13.2-15.2)
[2021-08-04 13:12] LABS: Alanine Aminotransferase 14 units/L (7-56); BUN/Creatinine Ratio 17; Blood Urea Nitrogen 15 mg/dL (7-17); Calcium 9.8 mg/dL (8.4-10.2); Hemolysis Index 3
[2021-08-04] MEDS: ONDANSETRON 4 MG/2 ML INJ IV ONE ×2 (13:18→13:19)
[2021-08-04 13:22] LABS: Free T4 (Free Thyroxine) 0.99 ng/dL (0.76-1.46)
--- NOTE | 2021-08-04 13:43 | History and Physical Report ---
History of Present Illness Chief complaint: My chest has been hurting History of present illness: 50 YO Female with HTN, DM, Mild Intermittent Asthma, OA, Obesity Hypoventilation Syndrome presents to ED for evaluation. Patient reports "my chest has been hurting". Patient states that she has experienced chest pain and rapid heartbeat over the past 1 week with intermittent symptoms initially but symptoms have become more constant over the past 2 days. Patient states that her pain is currently 2/10, constant, worsened with exertion, relieved with rest, associated with shortness of breath, substernal in nature, nonradiating. Patient transported to [facility] via private vehicle for further care and evaluation of the aforementioned symptoms. The patient was seen and evaluated in the emergency department. All lab and imaging studies reviewed. Patient found to have angina as well as clinical symptoms consistent with CHF decompensation. Patient admitted to telemetry and initiated on ACS protocol due to increased risk of worsening symptoms. Cardiology team consulted in ED. Patient denies fever, chills, skin rash, recent contact, unilateral leg swelling, calf pain, individual/family history of DVT/PE/bleeding/blood clotting disorders, or known exposure to COVID-19. No prior admission for review. No medication listed at time of admission for reconciliation. Advanced care planning conducted in ED. Past History Past Medical History: diabetes, hypertension, other (See HPI) Past Surgical History: hysterectomy, Other (Tubal ligation) Social history: , lives with family. denies: smoking, alcohol abuse Family history: diabetes, hypertension Medications and Allergies Allergies Allergy/AdvReac Type Severity Reaction Status Date / Time No Known Allergies Allergy Verified 09/13/18 16:22 Home Medications Medication Instructions Recorded Confirmed Last Taken Type Gabapentin 300 mg PO BID #60 capsule 12/11/14 Unknown Rx Metoprolol Xl [Metoprolol 25 mg PO QDAY #30 tablet 12/11/14 Unknown Rx SUCCINATE ER TAB] HYDROcodone/APAP 5-325 [[place] 1 each PO Q6HR PRN #30 tablet 05/10/15 Unknown Rx 5/325] Diclofenac Sodium 75 mg PO BID #14 tablet.dr 07/16/16 Unknown Rx Aspirin 81 mg PO DAILY #30 tab.chew 12/17/16 Unknown Rx Prednisone [predniSONE 10 mg 10 mg PO .TAPER #1 tab.ds.pk 12/17/16 Unknown Rx (6-Day Pack, 21 Tabs)] Cyclobenzaprine [Flexeril 10 MG 10 mg PO QHS PRN #20 tablet 03/20/17 Unknown Rx TAB] Naproxen [Naprosyn TAB] 500 mg PO BID #40 tablet 03/20/17 Unknown Rx tiZANidine [Zanaflex 4mg TAB] 4 mg PO DAILY #10 tablet 03/20/17 Unknown Rx Acetaminophen [Tylenol Arthritis] 650 mg PO Q6HR PRN #30 tablet.er 12/11/17 Unknown Rx Ibuprofen [Motrin] 600 mg PO Q8H PRN #30 tablet 12/11/17 Unknown Rx Naproxen [Naprosyn] 500 mg PO BID PRN #20 tablet 01/26/18 Unknown Rx methOCARBAMOL [Robaxin TAB] 500 mg PO Q6H PRN #20 tablet 01/26/18 Unknown Rx predniSONE [Prednisone] 50 mg PO DAILY #5 tablet 01/26/18 Unknown Rx Omeprazole 20 mg PO QDAY #30 tablet. 03/20/18 Unknown Rx Acetaminophen [Acetaminophen TAB] 500 mg PO Q6HR PRN #30 tablet 05/17/18 Unknown Rx ALBUTEROL Inhaler(NF) [VENTOLIN 2 puff IH Q4HRT #1 inha 09/13/18 Unknown Rx Inhaler(NF)] Benzonatate [Tessalon Perles] 100 mg PO Q8HR #10 capsule 09/13/18 Unknown Rx predniSONE [Deltasone] 20 mg PO QDAY #5 tab 09/13/18 Unknown Rx traMADoL [Ultram] 50 mg PO Q6HR PRN #12 tablet 09/13/18 Unknown Rx Active Meds: Active Medications Metoprolol Succinate (Metoprolol Succinate Xl 50 Mg Tab) 50 mg PO ONCE ONE Stop: 08/04/21 14:35 Review of Systems Constitutional: no weight loss, no weight gain, no fever, no chills Ears, nose, mouth and throat: no ear pain, no ear discharge, no nasal congestion, no nasal discharge Cardiovascular: chest pain, shortness of breath, dyspnea on exertion, decreased exercise tolerance Respiratory: no cough, no cough with sputum, no excessive sputum, no shortness of breath Gastrointestinal: no abdominal pain, no nausea, no vomiting, no diarrhea, no constipation Genitourinary Female: no pelvic pain, no flank pain, no dysuria, no urinary frequency Rectal: no pain, no incontinence, no bleeding Musculoskeletal: no neck stiffness, no neck pain, no shooting arm pain, no arm numbness/tingling, no low back pain Integumentary: no rash, no pruritis, no redness, no wounds, no jaundice, no boils Neurological: no transient paralysis, no weakness, no numbness, no seizures, no syncope, no tremors Psychiatric: no anxiety, no memory loss, no sleep disturbances, no insomnia, no change in libido, no suicidal ideation, no disorientation Endocrine: no cold intolerance, no polyphagia, no excessive thirst, no polyuria, no nocturia Hematologic/Lymphatic: no easy bruising, no easy bleeding, no lymphedema Allergic/Immunologic: no urticaria, no wheezing, no anaphylaxis Exam - Constitutional Vitals: Temp Pulse Resp BP Pulse Ox 98.5 F 84 20 135/80 98 08/04/21 10:36 08/04/21 10:36 08/04/21 10:36 08/04/21 10:36 08/04/21 10:36 General appearance: Present: mild distress, obese - EENT Eyes: Present: PERRL ENT: hearing intact, clear oral mucosa - Neck Neck: Present: supple, normal ROM - Respiratory Respiratory effort: normal Respiratory: bilateral: CTA - Cardiovascular Heart Sounds: Present: S1 & S2. Absent: rub, click - Extremities Extremities: pulses symmetrical, No edema Peripheral Pulses: within normal limits - Abdominal General gastrointestinal: Present: soft, non-tender, non-distended, normal bowel sounds Female genitourinary: Present: normal - Integumentary Integumentary: Present: clear, warm, dry - Musculoskeletal Musculoskeletal: gait normal, strength equal bilaterally - Psychiatric Psychiatric: appropriate mood/affect, intact judgment & insight - Neurologic Neurologic: CNII-XII intact, moves all extremities HEART Score - HEART Score EKG: Non-specific Age: 45-65 Risk factors: 1-2 risk factors Troponin: Troponin T < 0.010 ng/mL (0.00-0.029) 08/04/21 12:21 Troponin: < normal limit Results - Labs CBC & Chem 7: 08/04/21 12:21 08/04/21 12:21 Labs: Abnormal lab results 08/04/21 08/04/21 Range/Units 12:21 12:21 [place] % (Auto) 10.2 H (0.0-7.3) % Sodium 136 L (137-145) mmol/L Total Creatine Kinase 194 H (30-135) units/L Assessment and Plan - Patient Problems (1) Angina at rest Current Visit: Yes Status: Acute Plan to address problem: ACS protocol: Serial cardiac enzymes, EKG, telemetry, cardiology team consulted, morphine, submental oxygen, nitro, aspirin. Further care and evaluation as per cardiology team. (2) Diastolic CHF Current Visit: Yes Status: Acute Qualifiers: Heart failure chronicity: acute Qualified Code(s): I50.31 - Acute diastolic (congestive) heart failure Plan to address problem: Strict I/O, monitor urine output every shift, daily weight, afterload reduction, blood pressure control, supplemental oxygen, cardiology team consulted, echocardiogram ordered and pending at time of admission. (3) Obesity hypoventilation syndrome Current Visit: Yes Status: Acute Plan to address problem: Balanced diet, increase physical activity discharge, outpatient pulmonary follow-up for sleep study. Outpatient bariatric surgery follow-up. (4) Hypertension Current Visit: Yes Status: Acute Qualifiers: Hypertension type: primary hypertension Qualified Code(s): I10 - Essential (primary) hypertension Plan to address problem: Monitor blood pressure every shift, continue medical management (5) Diabetes Current Visit: Yes Status: Acute Plan to address problem: Consistent carbohydrate diet, Accu-Chek, insulin protocol, hypoglycemia protocol. (6) Osteoarthritis Current Visit: Yes Status: Acute Plan to address problem: NSAID therapy, pain control, supportive care. (7) DVT prophylaxis Current Visit: Yes Status: Acute Plan to address problem: SCD to bilateral lower extremities while in bed, patient is ambulatory (8) Advance care planning Current Visit: Yes Status: Acute Plan to address problem: Disease education conducted, care plan discussed, diagnoses discussed, prognosis discussed, patient is full code. Patient acknowledges understanding and a greement with care plan, +30 minutes.
[2021-08-04] MEDS ORDERED: HYDROmorphone 1 MG/1 ML INJ IV PRN (14:30)
[2021-08-04] MEDS ORDERED: ONDANSETRON 4 MG/2 ML INJ IV PRN (14:30)
[2021-08-04] MEDS ORDERED: METOPROLOL SUCCINATE XL 50 MG TAB PO ONE (14:34)
[2021-08-04] MEDS: MORPHINE 2 MG/1 ML INJ IV PRN ×2 (14:54→21:40)
[2021-08-04] MEDS ORDERED: ACETAMINOPHEN 325 MG TAB PO PRN (15:00)
[2021-08-04] MEDS ORDERED: ALBUTEROL 2.5 MG/3 ML NEBU IH PRN (15:00)
[2021-08-05 08:38] VITALS: BP 105/65
--- NOTE | 2021-08-05 10:09 | Consultation ---
History of Present Illness Consult date: 08/05/21 Requesting physician: AGATHA ALEXANDER Consult reason: tachycardia History of present illness: 50-year-old female with morbid obesity has impaired glucose tolerance has a history of hypertension hyperlipidemia came to the hospital having persistent palpitations. Found to have PVCs on monitoring and evaluation advisor in the ED. Patient electrolytes were normal. Since admission patient states having some palpitations but on monitor has no PVCs or significant arrhythmia noted EKG sinus rhythm with no ST-T abnormalities. Patient denies any chest pain or shortness of breath. Denies any syncope or lightheadedness. Advised patient to reduce caffeine intake Past History Past Medical History: diabetes, hypertension, other (See HPI) Past Surgical History: hysterectomy, Other (Tubal ligation) Social history: , lives with family. denies: smoking, alcohol abuse Family history: diabetes, hypertension Medications and Allergies Allergies Allergy/AdvReac Type Severity Reaction Status Date / Time No Known Allergies Allergy Verified 09/13/18 16:22 Home Medications Medication Instructions Recorded Confirmed Last Taken Type AtorvaSTATin [Lipitor] 1 tab PO QDAY 08/04/21 08/05/21 08/03/21 21:00 History amLODIPine [Norvasc] 5 mg PO DAILY 08/04/21 08/05/21 08/03/21 21:00 History ALBUTEROL NEB's 08/05/21 Unknown History Aspirin [[place]] 81 mg PO DAILY 08/05/21 08/05/21 08/03/21 09:00 History Active Meds: Active Medications Acetaminophen (Acetaminophen 325 Mg Tab) 650 mg PO Q4H PRN PRN Reason: Pain MILD(1-3)/Fever >100.5/LAN Albuterol (Albuterol 2.5 Mg/3 Ml Nebu) 2.5 mg IH Q4HRT PRN PRN Reason: Shortness Of Breath Hydromorphone HCl (Hydromorphone 1 Mg/1 Ml Inj) 0.5 mg IV Q13H PRN PRN Reason: Pain , Severe (7-10) Morphine Sulfate (Morphine 2 Mg/1 Ml Inj) 2 mg IV Q6H PRN PRN Reason: Pain, Moderate (4-6) Last Admin: 08/04/21 21:40 Dose: 2 mg Ondansetron HCl (Ondansetron 4 Mg/2 Ml Inj) 4 mg IV Q8H PRN PRN Reason: Nausea And Vomiting Sodium Chloride (Sodium Chloride 0.9% 10 Ml Flush Syringe) 10 ml IV BID ANGELA Last Admin: 08/04/21 21:41 Dose: 10 ml Sodium Chloride (Sodium Chloride 0.9% 10 Ml Flush Syringe) 10 ml IV PRN PRN PRN Reason: LINE FLUSH Review of Systems All systems: negative (As per the HPI) Physical Examination Vital Signs Temp Pulse Resp BP Pulse Ox 98.5 F 84 20 135/80 98 08/04/21 10:36 08/04/21 10:36 08/04/21 10:36 08/04/21 10:36 08/04/21 10:36 General appearance: no acute distress, well-nourished HEENT: Positive: PERRL, Mucus Membranes Moist Neck: Positive: neck supple, trachea midline Cardiac: Positive: Reg Rate and Rhythm, S1/S2. Negative: Audible Murmur Lungs: Positive: clear to auscultation, Normal Breath Sounds Neuro: Positive: Grossly Intact Abdomen: Positive: Soft, Active Bowel Sounds. Negative: Tender, Distended Female genitourinary: deferred Skin: Positive: Clear Incision: Cardiac Cath Site Musculoskeletal: No Pain, Normal Range of Motion Extremities: Present: normal. Absent: edema Results 08/04/21 12:21 08/04/21 12:21 Cardiac Enzymes 08/04/21 Range/Units 12:21 AST 15 (5-40) units/L CK-MB (CK-2) 3.0 (0.0-4.0) ng/mL CBC 08/04/21 Range/Units 12:21 WBC 6.2 (4.5-11.0) K/mm3 RBC 4.26 (3.65-5.03) M/mm3 Hgb 13.4 (10.1-14.3) gm/dl Hct 39.0 (30.3-42.9) % Plt Count 270 (140-440) K/mm3 Lymph # (Auto) 2.0 (1.2-5.4) K/mm3 [place] # (Auto) 0.6 (0.0-0.8) K/mm3 Eos # (Auto) 0.2 (0.0-0.4) K/mm3 Baso # (Auto) 0.0 (0.0-0.1) K/mm3 Comprehensive Metabolic Panel 08/04/21 Range/Units 12:21 Sodium 136 L (137-145) mmol/L Potassium 4.2 (3.6-5.0) mmol/L Chloride 101.0 (98-107) mmol/L Carbon Dioxide 25 (22-30) mmol/L BUN 15 (7-17) mg/dL Creatinine 0.9 (0.6-1.2) mg/dL Glucose 96 (65-100) mg/dL Calcium 9.8 (8.4-10.2) mg/dL AST 15 (5-40) units/L ALT 14 (7-56) units/L Alkaline Phosphatase 78 (35-129) units/L Total Protein 7.4 (6.3-8.2) g/dL Albumin 4.0 (3.9-5) g/dL EKG interpretations - Telemetry EKG Rhythm: Sinus Rhythm (Normal sinus rhythm nonspecific ST-T's) Assessment and Plan 50-year-old female with morbid obesity hypertension hyperlipidemia has been having atrial lower blood pressure. Advised to hold amlodipine. Reduce caffeine. Try low-dose Toprol-XL 12.5 mg. Patient may follow-up with cardiology as an outpatient. Patient has no bigeminy since being admitted to telemetry. - Patient Problems (1) Bigeminy Current Visit: Yes Status: Acute (2) Obesity hypoventilation syndrome Current Visit: Yes Status: Acute (3) Osteoarthritis Current Visit: Yes Status: Acute (4) HTN (hypertension) Current Visit: No Status: Acute (5) Obesity (BMI 35.0-39.9 without comorbidity) Current Visit: No Status: Acute
--- NOTE | 2021-08-05 11:44 | Discharge Summary ---
Providers - Providers Date of Admission: 08/04/21 14:17 Date of discharge: 08/05/21 Attending physician: ZUNILDA ZAVALA 08/04/21 14:25 Consult to Physician [CONS] Urgent Comment: Consulting Provider: JERAMIE VALENTIN Physician Instructions: Reason For Exam: Palpitations, chest pain Primary care physician: EXTRUSION SUPERVISOR Hospitalization Condition: Fair Hospital course: 50-year-old female with morbid obesity has impaired glucose tolerance has a history of hypertension hyperlipidemia came to the hospital having persistent palpitations. Found to have PVCs on manager monitoring in the ED. Patient electrolytes were normal. She was given toprol 50mg in the ER. Since on monitor has no PVCs or significant arrhythmia noted EKG sinus rhythm with no ST-T abnormalities. Patient denies any chest pain or shortness of breath. Denies any syncope or lightheadedness. Cardiology was consulted and recommended no further work-up. Patient was initiated on Toprol 25 mg daily and advised patient to reduce caffeine intake. Patient was then discharged home in stable condition with outpatient follow-up with cardiology in 1 week. Disposition: 01 HOME / SELF CARE / HOMELESS Final Discharge Diagnosis (Prints w/discharge instructions): --Palpitation, resolved. --Hypertension. --Morbid obesity Time spent for discharge: 34 minutes Core Measure Documentation - Palliative Care Palliative Care/ Comfort Measures: Not Applicable - Core Measures Any of the following diagnoses?: none Exam - Physical Exam Narrative exam: GENERAL: well-developed and morbidly obese -Romanian female lying on bed appeared to be in no discomfort. HEENT: Normocephalic. Atraumatic. No conjunctival congestion or icterus. Patient has moist mucous membranes. NECK: Supple. Trachea midline. CHEST/LUNGS: Clear to auscultated bilaterally, breathing nonlabored. No wheezes crackles or rhonchi. HEART/CARDIOVASCULAR: Regular in rate and rhythm. S1 and S2 positive. ABDOMEN: Abdomen is soft, nontender. Patient has normal bowel sounds. SKIN: There is no rash. Warm and dry. NEURO: No focal motor deficit. Follows command. MUSCULOSKELETAL: No joint effusion or tenderness. EXTRIMITY: No edema, no cyanosis or clubbing. PSYCH: Cooperative. - Constitutional Vitals: Temp Pulse Resp BP Pulse Ox 98.0 F 75 16 105/65 98 08/05/21 08:22 08/05/21 08:22 08/05/21 08:22 08/05/21 08:22 08/05/21 11:27 Plan Activity: advance as tolerated Weight Bearing Status: Weight Bear as Tolerated Diet: low fat, low salt Follow up with: PRIMARY CARE, [Primary Care Provider] - 3-5 Days JERAMIE VALENTIN MD [Staff Physician] - 7 Days Prescriptions: Metoprolol Xl [Metoprolol SUCCINATE ER TAB] 25 mg PO QDAY #30 tablet
--- NOTE | 2021-08-06 08:57 | Electrocardiograph Report ---
[facility] Test Date: 2021-08-04 Test Time: 10:41:32 Pat Name: STEPHANE MYERS Department: Room: A482 Gender: F Evp General Counsel: HERNAN : 1970 Requested By: ED DOC Order Number: [id number] Reading MD: Ketan Awad Measurements Intervals [place] Rate: 107 P: 69 [place]: 132 QRS: -13 QRSD: 102 T: -9 QT: 348 QTc: 465 Interpretive Statements Sinus tachycardia Frequent ventricular ectopy Probable left atrial enlargement No previous ECG available for comparison Electronically Signed On 08-06-2021 8:57:23 EDT by Ketan Awad
--- NOTE | 2021-08-06 09:12 | Electrocardiograph Report ---
[facility] Test Date: 2021-08-05 Test Time: 08:00:07 Pat Name: STEPHANE MYERS Department: Room: A482 1 Gender: F Smt Machine Operator: DANNY : 1970 Requested By: LINCOLN DAVIS Order Number: [id number] Reading MD: Ketan Awad Measurements Intervals [place] Rate: 75 P: 57 [place]: 143 QRS: 5 QRSD: 98 T: 3 QT: 403 QTc: 449 Interpretive Statements Sinus rhythm Probable left atrial enlargement Compared to ECG 08/04/2021 10:41:32 Sinus rate has decreased Ventricular ectopy is no longer evident Electronically Signed On 08-06-2021 9:12:08 EDT by Ketan Awad
[2021-08-06] MEDS ORDERED: NON-FORMULARY EACH (Aspirin [Vazalore] 81 MG Capsule) PO SCH (10:00)
[2021-08-06] MEDS ORDERED: ASPIRIN 81 MG TAB CHEW PO SCH (10:00)
[2021-08-06] MEDS ORDERED: METOPROLOL SUCCINATE XL 25 MG TAB PO SCH (10:00)
[2021-08-06] MEDS ORDERED: amLODIPine 5 MG TAB PO SCH (12:30)
== END 2021-08-05 14:50 | disposition home or self-care (01) | DRG 291 ==
LOC: ED 10:26 → 4A 14:17
PROVIDERS: ADMIT Internal Medicine; ATTEND Internal Medicine
DX: I11.0 Hypertensive heart disease with heart failure (principal); I50.31 Acute diastolic (congestive) heart failure; E66.2 Morbid (severe) obesity with alveolar hypoventilation; Z68.41 Body mass index [BMI] 40.0-44.9, adult; I20.8 Other forms of angina pectoris; M19.90 Unspecified osteoarthritis, unspecified site; E78.5 Hyperlipidemia, unspecified; E11.9 Type 2 diabetes mellitus without complications; Z83.3 Family history of diabetes mellitus; Z90.710 Acquired absence of both cervix and uterus; Z82.49 Family history of ischemic heart disease and other diseases of the circulatory system
CPT/HCPCS: 36415; 71046; 80053; 82550; 82553; 83735; 83880; 84439; 84443; 84484; 85025; 85379; 93005; G0378; J2270; J2405; J3010